=== PATIENT | male | born 1950 | race Caucasian/White ===

== ENCOUNTER → 2021-04-05 10:40 | Outpatient (CLI) | payer MEDICARE, OTHER, SELFPAY ==
--- NOTE | 2021-04-05 10:42 | DI.RAD.S_ITS ---
PROCEDURE: XR HIP W PEL IF DONE RT 2V INDICATIONS: RIGHT HIP PAIN TECHNIQUE: AP pelvis and lateral view of the right hip acquired. COMPARISON: None. FINDINGS: Bones: Patient is status post bilateral hip arthroplasty, with hardware components in expected positions. The hip joint appears congruent. The visualized bony structures appear intact. Soft tissues: Overlying postoperative changes are noted. No suspicious soft tissue densities. IMPRESSION: Expected alignment and appearance of bilateral hip arthroplasties. Dictated by: Regulo GARRETT Interpreted: Jamaal Puentes MD on 04/05/2021 at 12:08 Transcribed by: RAFFY on 04/05/2021 at 12:09 Approved by: Jamaal Peuntes M.D. on 04/05/2021 at 15:38
== END ==
PROVIDERS: PCP Family Medicine; Referring Provider Family Medicine; Visit Provider Family Medicine
DX: M25.551 Pain in right hip (principal); G89.29 Other chronic pain; Z96.643 Presence of artificial hip joint, bilateral
CPT/HCPCS: 73502

== ENCOUNTER → 2021-10-26 10:41 | Outpatient (CLI) | payer MEDICARE, OTHER, SELFPAY ==
[2021-10-26 12:44] LABS: Prostate Specific Antigen 2.87 ng/mL (0.10-4.00)
== END ==
PROVIDERS: PCP Family Medicine; Referring Provider Urology; Visit Provider Urology
DX: R39.9 Unspecified symptoms and signs involving the genitourinary system (principal); Z80.42 Family history of malignant neoplasm of prostate; Z12.5 Encounter for screening for malignant neoplasm of prostate
CPT/HCPCS: 36415; 84153; G0103

== ENCOUNTER → 2021-11-25 09:29 | Outpatient (CLI) | payer MEDICARE, OTHER, SELFPAY ==
[2021-11-25 11:12] LABS: Add Manual Diff / Slide Review NO; Basophils Absolute Auto 100 /uL (0-100); Basophils Percent Auto 1.2 % (0-2); Eosinophils Absolute Auto 400 /uL (0-450); Eosinophils Percent Auto 7.6 % (2-4); Hematocrit 41.7 % (41-53); Lymphocytes Absolute Auto 2000 /uL (1100-4500); Lymphocytes Percent Auto 34.9 % (25-40); Mean Corpuscular HGB Conc 33.6 % (30-36); Mean Corpuscular Hemoglobin 29.3 PG (26-34); Mean Corpuscular Volume 87.3 fL (80-100); Monocytes Absolute Auto 500 /uL (0-900); Monocytes Percent Auto 8.5 % (3-14); Neutrophils Absolute Auto 2800 /uL (1500-7000); Neutrophils Percent Auto 47.8 % (50-75); Platelet Count 186 X10^3/uL (150-400); Red Blood Cell Count 4.78 X10^6/uL (4.5-5.9); Red Cell Distribution Width 13.6 % (11.6-14.8); White Blood Cell Count 5.9 X10^3/uL (4.5-11.0)
[2021-11-25 11:36] LABS: Alanine Aminotransferase 23 IU/L (<50); Albumin Globulin Ratio 1.6 (1.0-2.8); Alkaline Phosphatase 52 U/L (38-126); Aspartate Aminotransferase 26 IU/L (17-59); BUN Creatinine Ratio 20.2 (6-22); Bilirubin Total 0.8 mg/dL (0.2-1.3); Blood Urea Nitrogen 21 mg/dL (9-20); Calcium 9.2 mg/dL (8.4-10.2); Carbon Dioxide 29 mmol/L (22-32); Chloride 106 mmol/L (98-107); Cholesterol 226 mg/dL (140-199); Estimated Glomerular Filt Rate > 60.0 mL/min (>60); Globulin 2.5 g/dL (1.7-4.1); Glucose 88 mg/dL (80-110); HDL Cholesterol 71 mg/dL (40-60); HEMOLYSIS < 15 (0-50); LDL Cholesterol Calculated 141 mg/dL (<100); Potassium 4.6 mmol/L (3.4-5.1); Sodium 138 mmol/L (137-145); Total Protein 6.5 g/dL (6.3-8.2); Triglycerides 72 mg/dL (35-150)
[2021-11-25 11:56] LABS: Free T3, Triiodothyronine Free 3.04 pg/mL (2.77-5.27); Free T4, Direct Thyroxine 1.08 ng/dL (0.78-2.19)
[2021-11-25 12:10] LABS: Thyroid Stimulating Hormone 1.69 uIU/mL (0.47-4.68)
== END ==
PROVIDERS: PCP Family Medicine; Referring Provider Family Medicine; Visit Provider Family Medicine
DX: E03.9 Hypothyroidism, unspecified (principal)
CPT/HCPCS: 36415; 80053; 80061; 84439; 84443; 84481; 85025

== ENCOUNTER → 2022-05-12 13:02 | Outpatient (CLI) | payer MEDICARE, OTHER, SELFPAY ==
--- NOTE | 2022-05-12 13:06 | DI.ECHO.S_ITS ---
[facility] +---------+ : : [address] : : : : [id number] : : : : Phone: [phone]---------+ Echocardiogram Report + + :Name: ERICH SAVAGE Study Date: 05/12/2022 Height: 72 in : :[facility] ReadingLocation: Weight: 205 lb : : Gender: Male BSA: 2.2 m2 : :: 1950 Age: 71 yrs BP: 144/85 mmHg: :Reason For Study: RBBB : :Ordering Physician: JESE, : :MIGUEL Performed By: Jadon Moreira : :Referring: MIGUEL SWEENEY : + + Interpretation Summary 1) Normal left ventricular thickness, size, and systolic function (EF 55-60%). 2) Normal right ventricular size and function. 3) No significant valvular abnormalities. 4) No prior Echo available for comparison. Procedure: A two-dimensional transthoracic echocardiogram with color flow and Doppler was performed. The study quality was technically adequate. There is no prior echocardiogram noted for this patient. Left Ventricle: The left ventricle is normal in size and wall thickness. Left ventricular systolic function is normal. The ejection fraction is estimated to be 55-60%. There are no obvious focal wall motion abnormalities noted but poor endocardial definition reduces the sensitivity for the detection of such. Diastolic parameters suggest a relaxation abnormality of the left ventricle, consistent with probable normal filling pressures. Right Ventricle: The right ventricle is normal in size and function. Atria: Both atria are normal in size. The interatrial septum grossly appears intact with no obvious evidence for an atrial septal defect. Mitral Valve: The mitral valve is normal in structure and function. There is no mitral regurgitation noted. Aortic Valve: The aortic valve is normal in structure and function. There is no aortic valve stenosis. No aortic regurgitation is present. Tricuspid Valve: The tricuspid valve is normal in structure and function. There is trace tricuspid regurgitation. Pulmonary artery pressures cannot be estimated because of the lack of a measurable TR jet velocity. Pulmonic Valve: The pulmonic valve is not well seen, but is grossly normal. There is no pulmonic valvular regurgitation. Great Vessels: The aortic root is normal size. The ascending aorta could not be visualized. The IVC is of normal diameter and collapses greater than 50% with a sniff. This suggests a low right atrial pressure of 3 mm Hg. Pericardium/ Pleura There is no pericardial effusion. There is no pleural effusion. MMode/2D Measurements & Calculations LVIDd: 5.4 cm LVOT diam: 2.4 cm LVIDs: 3.6 cm Ao root diam: 3.2 cm FS: 33.3 % IVSd: 1.0 cm LVPWd: 1.0 cm LV daley. diameter/BSA (cm/m^2): 2.5 LV sys. diameter/BSA (cm/m^2): 1.7 LA dimension: 3.5 cm RA long axis: 5.1 cm LA A2 area: 18.8 cm2 LA A4 area: 23.0 cm2 LA length (vol): 5.1 cm LA vol: 71.8 ml LA vol index: 33.4 ml/m2 TAPSE_phl: 2.3 cm Doppler Measurements & Calculations Ao V2 max: 94.7 cm/sec LVOT Max Douglas: 92.7 cm/sec Ao V2 mean: 68.3 cm/sec LV V1 max P.4 mmHg Ao max P.0 mmHg LV V1 VTI: 23.0 cm Ao mean P.0 mmHg CHRISTIANO(I,D): 5.1 cm2 Ao V2 VTI: 20.5 cm CHRISTIANO(V,D): 4.4 cm2 sev ratio: 1.1 CHRISTIANO indexed to BSA (cm^2/m^2): 2.4 MV E max douglas: 63.8 cm/sec SV(LVOT): 104.0 ml MV A max douglas: 45.8 cm/sec MV E/A: 1.4 Med Peak E' Douglas: 6.3 cm/sec E/E' med: 10.1 Lat Peak E' Douglas: 9.1 cm/sec E/E' lat: 7.0 E/e' average: 8.6 MV dec time: 0.29 sec AV VR_phl: 0.98 MV P1/2t-pr_phl: 86.0 msec CHRISTIANO(VTI)/BSA_phl: 2.4 Reading Physician:04:47 PM
[2022-05-12 14:55] LABS: COVID19 -Nasal RAPID Negative (Negative)
--- NOTE | 2022-05-12 19:11 | DI.NM.S_ITS ---
DATE OF SERVICE: PROCEDURE: Exercise stress test. INDICATION: Chest pain, shortness of breath, right bundle-branch block. FINDINGS: Patient underwent exercise stress test under the supervision of an attending staff. The patient walked on Felix protocol for 9 minutes and 1 second. Achieved 10.1 METs of workload and SABAS -36 percent. Baseline rhythm was sinus with underlying right bundle-branch block and had some less than 2- second pauses and at one time appeared to be one junctional escape. During exercise, the patient achieved maximum heart rate of 148, which was 101 percent of target heart rate. No significant pauses or heart block or arrhythmias seen during exercise. Resting blood pressure 138/88. Peak blood pressure 200/100 mmHg. Achieved 10.1 METs of workload. SABAS -36 percent. No chest pain. Had fatigue and hip discomfort. CONCLUSION: Exercise stress test is negative for inducible ischemia. Excellent exercise tolerance. Functional aerobic impairment -36 percent. Hypertensive blood pressure response with peak blood pressure 200/100 mmHg. Baseline rhythm is sinus with right bundle branch block and had some less than 2-second pauses and one time likely one junctional escape rhythm. However, during exercise, no significant atrioventricular block or pauses seen. Correlate clinically and consider further workup to rule out underlying sick sinus syndrome. Joshua Greco - BRCYE/britney/SUYAPA doc#: [id number]/job#: [id number] dd: 05/12/2022 17:49:00 dt: 05/12/2022 18:36:00 DICTATING /COPIES TO: Joel Magaña MD COPIES MNE: SALUD;
== END ==
PROVIDERS: PCP Family Medicine; Referring Provider Internal Medicine Cardiovascular Disease; Visit Provider Internal Medicine Cardiovascular Disease
DX: R07.9 Chest pain, unspecified (principal); I45.10 Unspecified right bundle-branch block; I10 Essential (primary) hypertension
CPT/HCPCS: 87635; 93017; 93306

== ENCOUNTER → 2022-06-06 08:36 | Outpatient (CLI) | payer MEDICARE, OTHER, SELFPAY ==
[2022-06-06 10:27] LABS: Cholesterol 137 mg/dL (140-199); HDL Cholesterol 63 mg/dL (40-60); LDL Cholesterol Calculated 59 mg/dL (<100); Triglycerides 76 mg/dL (35-150)
== END ==
PROVIDERS: PCP Family Medicine; Referring Provider Internal Medicine Cardiovascular Disease; Visit Provider Internal Medicine Cardiovascular Disease
DX: E78.5 Hyperlipidemia, unspecified (principal)
CPT/HCPCS: 36415; 80061

== ENCOUNTER → 2022-10-16 16:50 | Outpatient (CLI) | payer MEDICARE, SELFPAY ==
--- NOTE | 2022-10-16 18:17 | DI.RAD.S_ITS ---
PROCEDURE: XR HIP W PEL IF DONE RT 2V INDICATIONS: Right hip pain TECHNIQUE: AP pelvis with lateral view(s) of the right hip(s). COMPARISON: [facility], , XR HIP W PEL IF DONE RT 2V, 04/05/2021, 10:50. FINDINGS: Bones: No fractures or dislocations. Pelvic ring appears intact. No suspicious bony lesions. Bilateral hip arthroplasty hardware can be seen, without findings of failure or loosening. Along the right lateral acetabulum, there is a remote fracture fragment seen, which is stable compared to 2020. Age-appropriate lower lumbar spine degenerative changes are noted. Soft tissues: The visualized bowel gas pattern is normal. No suspicious soft tissue calcifications. IMPRESSION: No acute plain film abnormality is seen. No acute fractures or dislocations are seen. Unremarkable bilateral hip arthroplasty hardware. Dictated by: Radu Beltrán M.D. on 10/16/2022 at 18:26 Approved by: Radu Beltrán M.D. on 10/16/2022 at 18:27
== END ==
PROVIDERS: PCP Family Medicine; Referring Provider Physician Assistant; Visit Provider Physician Assistant
DX: M25.551 Pain in right hip (principal); Z96.643 Presence of artificial hip joint, bilateral
CPT/HCPCS: 73502

== ENCOUNTER → 2022-10-25 09:58 | Outpatient (CLI) | payer MEDICARE, SELFPAY ==
[2022-10-26 08:36] LABS: PSA Free % 29.1 % (.); PSA, Total 3.4 ng/mL (0.0-4.0)
== END ==
PROVIDERS: Family Provider Family Medicine; PCP Family Medicine; Referring Provider Urology; Visit Provider Urology
DX: N40.1 Benign prostatic hyperplasia with lower urinary tract symptoms (principal); R39.12 Poor urinary stream; K64.9 Unspecified hemorrhoids; Z86.010 Personal history of colon polyps
CPT/HCPCS: 36415; 84153; 84154; 99203

== ENCOUNTER 2022-11-02 06:52 | Day surgery (SDC) | payer MEDICARE, SELFPAY ==
[2022-11-02 07:15] VITALS: BP 158/87; PULSE 73; RESP 20; TEMP 36.2; O2SAT 98; BMI 28.5
[2022-11-02] MEDS: LACTATED RINGERS 1,000 ML 42 ML IV (07:19)
--- NOTE | 2022-11-02 07:44 | PM.PREOP ---
Pre-operative Note COVID-19 COVID-19 status: Not tested Interval Note History & Physical reviewed/Exam performed by Physician: Yes Changes to H&P: Yes H&P completed within 30 days and has changed as indicated here:: Joshua is here for his colonoscopy. We discussed rubber-band ligation of his hemorrhoids and he would like to proceed ASA Class (for procedural sedation): II
--- NOTE | 2022-11-02 08:12 | PM.OP.COLON ---
Operative Date/Time/Diagnoses Date of procedure: 11/02/22 Time of procedure: 08:12 Pre-op diagnosis: Colon cancer screening Post-op diagnosis: same Procedure & Clinicians Study performed: Colonoscopy Same procedure as scheduled: Yes Surgeon: Td Bergman Procedure Notes Procedure in detail: Surgeon: Td Bergman MD Anesthesia: Dianne Grady BARREL LINE OPERATOR Procedure: The patient was brought to the endoscopy suite, placed in left lateral decubitus position. The patient was connected to monitoring devices. A time-out was performed. Sedation was administered. Once the patient was adequately sedated, a digital rectal exam was performed and was normal. The scope was then inserted and advanced to the cecum where the appendiceal orifice was identified and photographed. The scope was then slowly withdrawn over greater than 6 minutes. Prep was not adequate to completely screen the colon. The mucosa was thoroughly inspected where possible. No polyps were seen however visualization was limited by the prep. There was extensive pandiverticulosis. The scope was retroflexed in the rectum. There were some scar tissue in the distal rectum. Were some internal hemorrhoids. The scope was straightened and removed. The patient was awakened and brought to recovery. Scope withdrawal time: 10 minute Sedation time: 20 minutes EBL: 0 Findings: Suboptimal prep, pandiverticulosis, internal hemorrhoids and scar tissue the distal rectum consistent with a history of a fistula Post-procedure Recommendations: Colonoscopy in 1 year Disposition: PACU
[2022-11-02 08:13] VITALS: BP 112/64; PULSE 61; RESP 14; TEMP 36.3; O2SAT 95
[2022-11-02 08:18] VITALS: BP 109/62; PULSE 61; RESP 12; O2SAT 95
[2022-11-02 08:25] VITALS: BP 116/70; PULSE 56; RESP 15; O2SAT 96
[2022-11-02 08:30] VITALS: BP 123/78; PULSE 61; RESP 17; O2SAT 97
[2022-11-02 08:33] VITALS: BP 136/84; PULSE 65; RESP 17; TEMP 36; O2SAT 97
== END 2022-11-02 08:44 | disposition home or self-care (01) ==
PROVIDERS: Family Provider Family Medicine; PCP Family Medicine; Referring Provider Surgery; Visit Provider Surgery
PROC: 0DJD8ZZ Inspection of Lower Intestinal Tract, Via Natural or Artificial Opening Endoscopic (ICD-10-PCS; CPT 45378; principal; 2022-11-02 07:45)
DX: Z12.11 Encounter for screening for malignant neoplasm of colon (principal); K57.30 Diverticulosis of large intestine without perforation or abscess without bleeding; K64.8 Other hemorrhoids
CPT/HCPCS: G0121; J2704

== ENCOUNTER 2023-01-24 15:00 | Outpatient (RCR) | payer MEDICARE, SELFPAY ==
--- NOTE | 2022-11-27 16:40 | PT.OIE ---
Current Diagnoses Pain in right hip (11/27/22) Difficulty in walking, not elsewhere classified (11/27/22) Weakness (11/27/22) Past Medical History (Last Reviewed 10/25/22 @ 09:05 by Radha Macias RN) Actinic keratoses Atypical nevi BPH (benign prostatic hyperplasia) Chronic 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 Depression Erectile dysfunction Family history of prostate cancer Hx of colonic polyp Hypothyroidism (acquired) Lower urinary tract symptoms Past Surgical History (Last Reviewed 10/25/22 @ 09:05 by Radha Macias RN) H/O bilateral hip replacements H/O vasectomy Visit Care Team Role Provider Type Junior Roger DO Attending Provider Physician Family Provider Primary Care Provider Referring Provider Specialty: Family Practice Address: [address] [place] [address], [facility] Email: Physical Therapy Initial Evaluation PT-OP-A Visit Information Start: 11/26/22 08:27 Freq: Status: Active Protocol: Document 11/27/22 08:18 SAK (Rec: 11/27/22 09:07 SAK [id number]) Out-Patient Physical Therapy Visit Information Visit Information Visit Type Initial Evaluation Visit Start Time 08:20 Visit Stop Time 09:00 Total Visit Minutes 50 Visit Number 1 Evaluation Information Evaluation Date 11/27/22 PT-OP-B Current Condition Start: 11/26/22 08:27 Freq: Status: Active Protocol: Document 11/27/22 08:18 SAK (Rec: 11/27/22 09:07 SAK [id number]) Current Condition History of Current Condition Onset Date 1 month Current Complaints right hip pain History of Current Condition History antonio JOY. No issues with left. Right hip aching with driving in the past but always went away. Now really flared up and won't go away. Initially could get relief standing up, now no relief, can't sleep in bed due to right hip and calf pain. Now has developed LE edema due to sleeping in recliner left greater than right. Normal sleep position is laying on right side or left side. LOts of Ibuprofen, Acetaminophen. Right big toe N/T but mostly ache not tingle. Crossing right LE over left in sitting at times gives a little relief . Historically walked 4-6 miles per day, currently unable to walk. [address] up to [facility], lots of sitting with travel, states he stretched wrong foot up on bench had sharp pain and worsened pain. Nights are the worst, poor sleep Prior Treatments and Tests x-rays negative. 1 chiropractic appointment, not helpful. Lots of time on ice and heat Treatment Goals Patient/Caregiver Goals eliminate pain, resume prior level of function Prior Functional Status Baseline Function- ADL's Independent Baseline Function- Mobility Independent Baseline Function- Gait no difficulty Baseline Function- Work/School retired Baseline Function- Recreation/Hobbies no difficulty Current Functional Impairments (Reported) Functional Limitations- ADL's paionful Functional Limitations- Mobility/Gait painful and limited Functional Limitations- Work/School retired Functional Limitations- Recreation/ unable Hobbies PT-OP-C Subjective Start: 11/26/22 08:27 Freq: Status: Active Protocol: Document 11/27/22 08:18 SAK (Rec: 11/28/22 16:39 [facility] [id number]) OP-PT Pain Assessment Location right buttock Intensity 8 Scale Used Numeric (0 - 10) Description Aching,Pressure,Spasm,Tender, Tightness Frequency Frequent PT-OP-F Manual Assessment Start: 11/26/22 08:27 Freq: Status: Active Protocol: Document 11/27/22 08:18 SAK (Rec: 11/28/22 16:39 [facility] [id number]) Manual Assessments Soft Tissue Assessment Soft Tissue Mobility Assessment TTP right piriformis, glut med , IT band PT-OP-G Mobility & Gait Start: 11/26/22 08:27 Freq: Status: Active Protocol: Document 11/27/22 08:18 SAK (Rec: 11/28/22 16:39 [facility] [id number]) OP Gait Assessment Gait Gait Assistance Required: Independent Assistive Devices Assistive Device None Gait Deviations General Gait Pattern Antalgic Factors Limiting Gait Function Factors Limiting Gait Function Pain PT-OP-H Neuro Start: 11/26/22 08:27 Freq: Status: Active Protocol: Document 11/27/22 08:18 SAK (Rec: 11/28/22 16:39 [facility] [id number]) Sensation Evaluation Gross Sensation Gross Sensation WNL PT-OP-J Posture/Palpation/Skin Start: 11/26/22 08:27 Freq: Status: Active Protocol: Document 11/27/22 08:18 SAK (Rec: 11/28/22 16:39 [facility] [id number]) Posture Evaluation Position Standing Head/C-Spine Posture Forward Head T-Spine Posture Increased Kyphosis L-Spine Posture Decreased Lordosis Shoulder Posture (L) Rounded,(R) Rounded Scapula Posture (L) Protracted,(R) Protracted Pelvis Posture Posterior Tilted Weight Distribution Weight Shifted Posterior Hip Posture (R) Externally Rotated Palpation Assessment Location glut med Palpation Location R Palpation Findings Soft Tissue Tightness, Tenderness IT band Palpation Location R Palpation Findings Soft Tissue Tightness, Tenderness piriformis Palpation Location R Palpation Findings Soft Tissue Tightness, Tenderness PT-OP-K Range of Motion Start: 11/26/22 08:27 Freq: Status: Active Protocol: Document 11/27/22 08:18 [facility] (Rec: 11/28/22 16:39 [facility] [id number]) Lumbar Spine Range of Motion Lumbar Spine Active Flexion 30 Extension 10 Rotation Left 45 Rotation Right 45 Lateral Flexion Left 35 Lateral Flexion Right 30 ROM Limitations Soft Tissue Tightness,Pain Hip Goniometric Range of Motion Hip Right Flexion w/Knee Flexed 90 Straight Leg Raise 35 Extension 0 Abduction 35 Internal Rotation 10 External Rotation 40 Left Flexion w/Knee Flexed 90 Straight Leg Raise 40 Extension 0 Abduction 25 Internal Rotation 10 External Rotation 30 PT-OP-L Special Tests Start: 11/26/22 08:27 Freq: Status: Active Protocol: Document 11/27/22 08:18 [facility] (Rec: 11/28/22 16:39 [facility] [id number]) Special Tests Lumbar Spine Special Tests Vertical Spine Loading Test Results negative Slump Test Results negative PT-OP-M Strength Start: 11/26/22 08:27 Freq: Status: Active Protocol: Document 11/27/22 08:18 [facility] (Rec: 11/28/22 16:39 [facility] [id number]) Hip Strength Hip Manual Muscle Testing Right Flexion (L2) 4 Good Extension (S1) 3+ Fair+ Abduction 4- Good- External Rotation 3+ Fair+ Internal Rotation 4- Good- Left Flexion (L2) 4 Good Extension (S1) 4- Good- Abduction 4- Good- External Rotation 4- Good- Internal Rotation 4 Good Knee Strength Knee Manual Muscle Testing antonio Flexion (S2) 5 Normal Extension (L3) 5 Normal Ankle/Foot Strength Ankle and Foot Manual Muscle Testing antonio Dorsiflexion (L4) 5 Normal Plantarflexion (S1) 5 Normal PT-OP-Q Treatments Start: 11/26/22 08:27 Freq: Status: Active Protocol: Document 11/27/22 08:18 SAK (Rec: 11/28/22 16:39 [facility] [id number]) Self-Care/Home Management Treatment Education Patient Education Body Mechanics,Home Exercise Program,Pain Management, Posture PT-OP-R Modalities Start: 11/26/22 08:27 Freq: Status: Active Protocol: Document 11/27/22 08:18 SAK (Rec: 11/28/22 16:39 [facility] [id number]) Hot Pack/Cold Pack Treatment Cold Pack Location right buttock, l/s Patient Position Hooklying Treatment Duration (minutes) 10 PT-OP-T Assessment and Plan Start: 11/26/22 08:27 Freq: Status: Active Protocol: Document 11/27/22 08:18 [facility] (Rec: 11/27/22 09:07 [facility] [id number]) Physical Therapy Assessment Rehab Potential Rehabilitation Potential Good Evaluation Complexity Number of Personal Factors/Comorbidities 1-2 Number of Body Systems Impaired 3 Clinical Presentation at Evaluation Evolving Impairments Impairments Activity Tolerance,Gait,Pain, Soft Tissue Mobility,Strength Goals Three Impairment sleep limited by pain Nursing Home Goal (LTG) Patient able to resume normal sleep pattern without being woken due to pain LTG Duration 01/27/23 Two Impairment weakness and decreased flexibility hips antonio right greater than left Short Term Goal (STG) patient to be instructed in HEP to address impairments STG Duration 12/29/22 Nursing Home Goal (LTG) Patient to be independent and compliant with HEP and demonstrate ROM WNL and strength 5/5 antonio hips LTG Duration 01/28/23 One Impairment pain right buttock and lateral calf Impairment 5-8/10 on pain scale Short Term Goal (STG) decrease pain to no greater than 5/10 STG Duration 12/28/22 Nursing Home Goal (LTG) decrease pain to no greater than 2/10 to allow patient to resume all prior activities LTG Duration 01/27/23 Assessment Summary Assessment Patient presents to PT with function limiting right buttock with radicular symptoms lateral and anterior right ruiz. Impairments revealed excess ER right LE in standing, limited forward flexion with c/o inc pain. Tender to palpation R gluteal tuberosity , lateral anterior ruiz. Weakness right ER. Weak and painful hip abd. Tightness antonio HS left greater than right. Negative SLR and vertical compression test. Feel patient would benefit from PT to decrease his pain, improve his flexibility and strength, and help him resume prior level of functional activity tolerance, and return to sleep without pain. POC was discussed and patient was in agreement. Physical Therapy Plan Frequency and Duration Frequency of Treatment 2x/Week Duration of treatment (weeks) 8 Plan of Care Start Date 11/27/22 Plan of Care End Date 01/26/23 Next Visit Focus/Plan Next Note Type Treatment Note Next Visit Plan REview HEP and use if ice today, trial manual traction, instruct in self-massage gluteal region.
--- NOTE | 2022-11-27 16:40 | PT.OPPOC ---
Physical, Occupational & Speech Therapy At [facility] Current Diagnoses Pain in right hip (11/27/22) Difficulty in walking, not elsewhere classified (11/27/22) Weakness (11/27/22) Visit Care Team Role Provider Type Junior Roger DO Attending Provider Physician Family Provider Primary Care Provider Referring Provider Specialty: [facility] Practice Address: [address] [place] [address], [facility] Email: Plan Of Care PT-OP-T Assessment and Plan Start: 11/26/22 08:27 Freq: Status: Active Protocol: Document 11/27/22 08:18 [facility] (Rec: 11/27/22 09:07 SAK [id number]) Physical Therapy Assessment Rehab Potential Rehabilitation Potential Good Evaluation Complexity Number of Personal Factors/Comorbidities 1-2 Number of Body Systems Impaired 3 Clinical Presentation at Evaluation Evolving Impairments Impairments Activity Tolerance,Gait,Pain, Soft Tissue Mobility,Strength Goals Three Impairment sleep limited by pain Half-Way Goal (LTG) Patient able to resume normal sleep pattern without being woken due to pain LTG Duration 01/27/23 Two Impairment weakness and decreased flexibility hips antonio right greater than left Short Term Goal (STG) patient to be instructed in HEP to address impairments STG Duration 12/29/22 Banquet Set Up Person Goal (LTG) Patient to be independent and compliant with HEP and demonstrate ROM WNL and strength 5/5 antonio hips LTG Duration 01/28/23 One Impairment pain right buttock and lateral calf Impairment 5-8/10 on pain scale Short Term Goal (STG) decrease pain to no greater than 5/10 STG Duration 12/28/22 Half-Way Goal (LTG) decrease pain to no greater than 2/10 to allow patient to resume all prior activities LTG Duration 01/27/23 Assessment Summary Assessment Patient presents to PT with function limiting right buttock with radicular symptoms lateral and anterior right ruiz. Impairments revealed excess ER right LE in standing, limited forward flexion with c/o inc pain. Tender to palpation R gluteal tuberosity , lateral anterior ruiz. Weakness right ER. Weak and painful hip abd. Tightness antonio HS left greater than right. Negative SLR and vertical compression test. Feel patient would benefit from PT to decrease his pain, improve his flexibility and strength, and help him resume prior level of functional activity tolerance, and return to sleep without pain. POC was discussed and patient was in agreement. Physical Therapy Plan Frequency and Duration Frequency of Treatment 2x/Week Duration of treatment (weeks) 8 Plan of Care Start Date 11/27/22 Plan of Care End Date 01/26/23 Next Visit Focus/Plan Next Note Type Treatment Note Next Visit Plan REview HEP and use if ice today, trial manual traction, instruct in self-massage gluteal region. Plan of Care Dates Plan of Care Start Date 11/27/22 Plan of Care End Date 01/26/23 Electronically Signed by: Velvet Silva, PT 11/28/22 1640 If you are in agreement with this Plan of Care, please return a signed and dated copy. I have reviewed this Plan of Care and certify that the skilled therapy services above are required to meet the patient?s needs. Physician Signature Date Printed Name and Credentials Clinical Instructor Signature Printed Name and Credentials
--- NOTE | 2022-11-29 12:22 | PT.OTN ---
Current Diagnoses Pain in right hip (11/29/22) Difficulty in walking, not elsewhere classified (11/29/22) Weakness (11/29/22) Physical Therapy Treatment Note PT-OP-A Visit Information Start: 11/26/22 08:27 Freq: Status: Active Protocol: Document 11/29/22 10:30 SAK (Rec: 11/29/22 11:21 [facility] [id number]) Out-Patient Physical Therapy Visit Information Visit Information Visit Type Treatment Note Visit Note Pt. reports saw chiropractor after PT appointment, very painful with direct massage, better today. Still sleeping in chair. Compliant to HEP. Visit Start Time 10:30 Visit Stop Time 11:20 Total Visit Minutes 50 Visit Number 2 Evaluation Information Evaluation Date 11/27/22 PT-OP-B Current Condition Start: 11/26/22 08:27 Freq: Status: Active Protocol: Document 11/29/22 10:30 SAK (Rec: 11/29/22 11:21 [facility] [id number]) Current Condition History of Current Condition Onset Date 1 month Current Complaints right hip pain History of Current Condition History antonio JOY. No issues with left. Right hip aching with driving in the past but always went away. Now really flared up and won't go away. Initially could get relief standing up, now no relief, can't sleep in bed due to right hip and calf pain. Now has developed LE edema due to sleeping in recliner left greater than right. Normal sleep position is laying on right side or left side. LOts of Ibuprofen, Acetaminophen. Right big toe N/T but mostly ache not tingle. Crossing right LE over left in sitting at times gives a little relief . Historically walked 4-6 miles per day, currently unable to walk. [address] up to [facility], lots of sitting with travel, states he stretched wrong foot up on bench had sharp pain and worsened pain. Nights are the worst, poor sleep Prior Treatments and Tests x-rays negative. 1 chiropractic appointment, not helpful. Lots of time on ice and heat Treatment Goals Patient/Caregiver Goals eliminate pain, resume prior level of function PT-OP-C Subjective Start: 11/26/22 08:27 Freq: Status: Active Protocol: Document 11/27/22 08:18 SAK (Rec: 11/28/22 16:39 [facility] [id number]) OP-PT Pain Assessment Location right buttock Intensity 8 Scale Used Numeric (0 - 10) Description Aching,Pressure,Spasm,Tender, Tightness Frequency Frequent PT-OP-F Manual Assessment Start: 11/26/22 08:27 Freq: Status: Active Protocol: Document 11/27/22 08:18 SAK (Rec: 11/28/22 16:39 [facility] [id number]) Manual Assessments Soft Tissue Assessment Soft Tissue Mobility Assessment TTP right piriformis, glut med , IT band PT-OP-G Mobility & Gait Start: 11/26/22 08:27 Freq: Status: Active Protocol: Document 11/27/22 08:18 SAK (Rec: 11/28/22 16:39 [facility] [id number]) OP Gait Assessment Gait Gait Assistance Required: Independent Assistive Devices Assistive Device None Gait Deviations General Gait Pattern Antalgic Factors Limiting Gait Function Factors Limiting Gait Function Pain PT-OP-H Neuro Start: 11/26/22 08:27 Freq: Status: Active Protocol: Document 11/27/22 08:18 SAK (Rec: 11/28/22 16:39 [facility] [id number]) Sensation Evaluation Gross Sensation Gross Sensation WNL PT-OP-J Posture/Palpation/Skin Start: 11/26/22 08:27 Freq: Status: Active Protocol: Document 11/27/22 08:18 SAK (Rec: 11/28/22 16:39 [facility] [id number]) Posture Evaluation Position Standing Head/C-Spine Posture Forward Head T-Spine Posture Increased Kyphosis L-Spine Posture Decreased Lordosis Shoulder Posture (L) Rounded,(R) Rounded Scapula Posture (L) Protracted,(R) Protracted Pelvis Posture Posterior Tilted Weight Distribution Weight Shifted Posterior Hip Posture (R) Externally Rotated Palpation Assessment Location glut med Palpation Location R Palpation Findings Soft Tissue Tightness, Tenderness IT band Palpation Location R Palpation Findings Soft Tissue Tightness, Tenderness piriformis Palpation Location R Palpation Findings Soft Tissue Tightness, Tenderness PT-OP-K Range of Motion Start: 11/26/22 08:27 Freq: Status: Active Protocol: Document 11/27/22 08:18 SAK (Rec: 11/28/22 16:39 [facility] [id number]) Lumbar Spine Range of Motion Lumbar Spine Active Flexion 30 Extension 10 Rotation Left 45 Rotation Right 45 Lateral Flexion Left 35 Lateral Flexion Right 30 ROM Limitations Soft Tissue Tightness,Pain Hip Goniometric Range of Motion Hip Right Flexion w/Knee Flexed 90 Straight Leg Raise 35 Extension 0 Abduction 35 Internal Rotation 10 External Rotation 40 Left Flexion w/Knee Flexed 90 Straight Leg Raise 40 Extension 0 Abduction 25 Internal Rotation 10 External Rotation 30 PT-OP-L Special Tests Start: 11/26/22 08:27 Freq: Status: Active Protocol: Document 11/27/22 08:18 SAK (Rec: 11/28/22 16:39 [facility] [id number]) Special Tests Lumbar Spine Special Tests Vertical Spine Loading Test Results negative Slump Test Results negative PT-OP-M Strength Start: 11/26/22 08:27 Freq: Status: Active Protocol: Document 11/27/22 08:18 [facility] (Rec: 11/28/22 16:39 [facility] [id number]) Hip Strength Hip Manual Muscle Testing Right Flexion (L2) 4 Good Extension (S1) 3+ Fair+ Abduction 4- Good- External Rotation 3+ Fair+ Internal Rotation 4- Good- Left Flexion (L2) 4 Good Extension (S1) 4- Good- Abduction 4- Good- External Rotation 4- Good- Internal Rotation 4 Good Knee Strength Knee Manual Muscle Testing antonio Flexion (S2) 5 Normal Extension (L3) 5 Normal Ankle/Foot Strength Ankle and Foot Manual Muscle Testing antonio Dorsiflexion (L4) 5 Normal Plantarflexion (S1) 5 Normal PT-OP-Q Treatments Start: 11/26/22 08:27 Freq: Status: Active Protocol: Document 11/29/22 10:30 SAK (Rec: 11/29/22 11:21 [facility] [id number]) Cardio Equipment Recumbent Stepper (Sci-Fit) Duration (Minutes) 5 Resistance 1 Seat Position 12 Gym Equipment Shuttle Recovery Unilateral Squats Resistance 50 Shuttle Recovery Platform Stable Reps/Time 10x2 Bilateral Squats Resistance 62 Shuttle Recovery Platform Stable Reps/Time 10x2 Therapeutic Exercises Supine Exercises sciatic n glide Reps/Minutes 10x figure 4 Supine Exercise Name partial Reps/Minutes 2x30 Comments manual HS stretch Reps/Minutes 2x30 Sitting Exercises sciatic n glide Reps/Minutes 10x Comments given HO for HEP Hs stretch Reps/Minutes 2x30 Standing Exercises HC stretch Standing Exercise Name tingling in right foot with trial stairs Reps/Minutes 2x30 Comments cues for upright posture resisted walk Standing Exercise Name side Resistance yellow Reps/Minutes 10ft x 2 ea direction Manual Therapy Treatment Soft Tissue Mobilization HS, ITB, lateral calf Mobilization Type Instrument Assisted,Myofascial Release Comments rolling pin Self-Care/Home Management Treatment Education Patient Education Body Mechanics,Home Exercise Program,Pain Management, Posture PT-OP-R Modalities Start: 11/26/22 08:27 Freq: Status: Active Protocol: Document 11/29/22 10:30 [facility] (Rec: 11/29/22 12:22 [facility] [id number]) Hot Pack/Cold Pack Treatment Cold Pack Location ischial tub right Patient Position Sitting Treatment Duration (minutes) 10 Patient Tolerance Good PT-OP-T Assessment and Plan Start: 11/26/22 08:27 Freq: Status: Active Protocol: Document 11/29/22 10:30 [facility] (Rec: 11/29/22 11:21 [facility] [id number]) Physical Therapy Assessment Goals Three Impairment sleep limited by pain Lot Porter Goal (LTG) Patient able to resume normal sleep pattern without being woken due to pain LTG Duration 01/27/23 Two Impairment weakness and decreased flexibility hips antonio right greater than left Short Term Goal (STG) patient to be instructed in HEP to address impairments STG Duration 12/29/22 Lot Porter Goal (LTG) Patient to be independent and compliant with HEP and demonstrate ROM WNL and strength 5/5 antonio hips LTG Duration 01/28/23 One Impairment pain right buttock and lateral calf Impairment 5-8/10 on pain scale Short Term Goal (STG) decrease pain to no greater than 5/10 STG Duration 12/28/22 Half-Way Goal (LTG) decrease pain to no greater than 2/10 to allow patient to resume all prior activities LTG Duration 01/27/23 Assessment Summary Assessment Patient demonstrated good understanding of ther ex, added sciatic n glide to HEP, self massage with rolling pin and tennis ball. Symptoms irritable. Ended with ice pack ischial tuberosity Physical Therapy Plan Frequency and Duration Frequency of Treatment 2x/Week Duration of treatment (weeks) 8 Plan of Care Start Date 11/27/22 Plan of Care End Date 01/26/23 Next Visit Focus/Plan Next Note Type Treatment Note Next Visit Plan Assess response to today's treatment. trial manual traction to clear l/s. Continue hip strengthening and flex, manual treatment PRN.
--- NOTE | 2022-12-06 09:07 | PT.OTN ---
Current Diagnoses Pain in right hip (12/06/22) Difficulty in walking, not elsewhere classified (12/06/22) Weakness (12/06/22) Physical Therapy Treatment Note PT-OP-A Visit Information Start: 11/26/22 08:27 Freq: Status: Active Protocol: Document 12/06/22 08:15 TH (Rec: 12/06/22 09:06 [id number]) Out-Patient Physical Therapy Visit Information Visit Information Visit Type Treatment Note Visit Start Time 08:20 Visit Stop Time 09:00 Total Visit Minutes 40 Visit Number 3 Number of INSURANCE LOSS ASSESSOR Visits 0 PT-OP-B Current Condition Start: 11/26/22 08:27 Freq: Status: Active Protocol: Document 11/29/22 10:30 SAK (Rec: 11/29/22 11:21 SAK [id number]) Current Condition History of Current Condition Onset Date 1 month Current Complaints right hip pain History of Current Condition History antonio JOY. No issues with left. Right hip aching with driving in the past but always went away. Now really flared up and won't go away. Initially could get relief standing up, now no relief, can't sleep in bed due to right hip and calf pain. Now has developed LE edema due to sleeping in recliner left greater than right. Normal sleep position is laying on right side or left side. LOts of Ibuprofen, Acetaminophen. Right big toe N/T but mostly ache not tingle. Crossing right LE over left in sitting at times gives a little relief . Historically walked 4-6 miles per day, currently unable to walk. [address] up to [facility], lots of sitting with travel, states he stretched wrong foot up on bench had sharp pain and worsened pain. Nights are the worst, poor sleep Prior Treatments and Tests x-rays negative. 1 chiropractic appointment, not helpful. Lots of time on ice and heat Treatment Goals Patient/Caregiver Goals eliminate pain, resume prior level of function PT-OP-C Subjective Start: 11/26/22 08:27 Freq: Status: Active Protocol: Document 12/06/22 08:15 TH (Rec: 12/06/22 09:06 TH [id number]) OP-PT Subjective Patient Comments Patient Comments Pt states that he has been doing HEP regularly and he has been feeling a little bit better. PT-OP-F Manual Assessment Start: 11/26/22 08:27 Freq: Status: Active Protocol: Document 11/27/22 08:18 SAK (Rec: 11/28/22 16:39 [facility] [id number]) Manual Assessments Soft Tissue Assessment Soft Tissue Mobility Assessment TTP right piriformis, glut med , IT band PT-OP-G Mobility & Gait Start: 11/26/22 08:27 Freq: Status: Active Protocol: Document 11/27/22 08:18 SAK (Rec: 11/28/22 16:39 [facility] [id number]) OP Gait Assessment Gait Gait Assistance Required: Independent Assistive Devices Assistive Device None Gait Deviations General Gait Pattern Antalgic Factors Limiting Gait Function Factors Limiting Gait Function Pain PT-OP-H Neuro Start: 11/26/22 08:27 Freq: Status: Active Protocol: Document 11/27/22 08:18 SAK (Rec: 11/28/22 16:39 [facility] [id number]) Sensation Evaluation Gross Sensation Gross Sensation WNL PT-OP-J Posture/Palpation/Skin Start: 11/26/22 08:27 Freq: Status: Active Protocol: Document 11/27/22 08:18 SAK (Rec: 11/28/22 16:39 [facility] [id number]) Posture Evaluation Position Standing Head/C-Spine Posture Forward Head T-Spine Posture Increased Kyphosis L-Spine Posture Decreased Lordosis Shoulder Posture (L) Rounded,(R) Rounded Scapula Posture (L) Protracted,(R) Protracted Pelvis Posture Posterior Tilted Weight Distribution Weight Shifted Posterior Hip Posture (R) Externally Rotated Palpation Assessment Location glut med Palpation Location R Palpation Findings Soft Tissue Tightness, Tenderness IT band Palpation Location R Palpation Findings Soft Tissue Tightness, Tenderness piriformis Palpation Location R Palpation Findings Soft Tissue Tightness, Tenderness PT-OP-K Range of Motion Start: 11/26/22 08:27 Freq: Status: Active Protocol: Document 11/27/22 08:18 SAK (Rec: 11/28/22 16:39 [facility] [id number]) Lumbar Spine Range of Motion Lumbar Spine Active Flexion 30 Extension 10 Rotation Left 45 Rotation Right 45 Lateral Flexion Left 35 Lateral Flexion Right 30 ROM Limitations Soft Tissue Tightness,Pain Hip Goniometric Range of Motion Hip Right Flexion w/Knee Flexed 90 Straight Leg Raise 35 Extension 0 Abduction 35 Internal Rotation 10 External Rotation 40 Left Flexion w/Knee Flexed 90 Straight Leg Raise 40 Extension 0 Abduction 25 Internal Rotation 10 External Rotation 30 PT-OP-L Special Tests Start: 11/26/22 08:27 Freq: Status: Active Protocol: Document 11/27/22 08:18 [facility] (Rec: 11/28/22 16:39 [facility] [id number]) Special Tests Lumbar Spine Special Tests Vertical Spine Loading Test Results negative Slump Test Results negative PT-OP-M Strength Start: 11/26/22 08:27 Freq: Status: Active Protocol: Document 11/27/22 08:18 [facility] (Rec: 11/28/22 16:39 [facility] [id number]) Hip Strength Hip Manual Muscle Testing Right Flexion (L2) 4 Good Extension (S1) 3+ Fair+ Abduction 4- Good- External Rotation 3+ Fair+ Internal Rotation 4- Good- Left Flexion (L2) 4 Good Extension (S1) 4- Good- Abduction 4- Good- External Rotation 4- Good- Internal Rotation 4 Good Knee Strength Knee Manual Muscle Testing antonio Flexion (S2) 5 Normal Extension (L3) 5 Normal Ankle/Foot Strength Ankle and Foot Manual Muscle Testing antonio Dorsiflexion (L4) 5 Normal Plantarflexion (S1) 5 Normal PT-OP-Q Treatments Start: 11/26/22 08:27 Freq: Status: Active Protocol: Document 12/06/22 08:15 TH (Rec: 12/06/22 09:06 TH [id number]) Therapeutic Exercises Other Exercises Wall glide on right Side right Comments 3x on right side only Manual Therapy Treatment Manual Techniques iliopsoas release Comments right Attempted however pt too painful with r le radicular symptoms in this position. PT-OP-R Modalities Start: 11/26/22 08:27 Freq: Status: Active Protocol: Document 12/06/22 08:15 TH (Rec: 12/06/22 09:06 TH [id number]) Spinal Traction Traction Treatment Lumbar Traction Treatment Comment Velez traction for lumbar spine PT-OP-T Assessment and Plan Start: 11/26/22 08:27 Freq: Status: Active Protocol: Document 12/06/22 08:15 TH (Rec: 12/06/22 09:06 TH [id number]) Physical Therapy Assessment Goals Three Impairment sleep limited by pain Machine Egg Washer Goal (LTG) Patient able to resume normal sleep pattern without being woken due to pain LTG Duration 01/27/23 Two Impairment weakness and decreased flexibility hips antonio right greater than left Short Term Goal (STG) patient to be instructed in HEP to address impairments STG Duration 12/29/22 Usp Goal (LTG) Patient to be independent and compliant with HEP and demonstrate ROM WNL and strength 5/5 antonio hips LTG Duration 01/28/23 One Impairment pain right buttock and lateral calf Impairment 5-8/10 on pain scale Short Term Goal (STG) decrease pain to no greater than 5/10 STG Duration 12/28/22 Usp Goal (LTG) decrease pain to no greater than 2/10 to allow patient to resume all prior activities LTG Duration 01/27/23 Assessment Summary Assessment Pt states he has felt a little difference since start of PT however symptoms are still intolerable at times. Will assess response to [id number] next visit. Physical Therapy Plan Frequency and Duration Frequency of Treatment 2x/Week Duration of treatment (weeks) 8 Plan of Care Start Date 11/27/22 Plan of Care End Date 01/26/23 Therapeutic Interventions Therapeutic Interventions Balance Training,Coordination Training,Gait Training,Home Exercise Program,Joint Mobilizations,Manual Therapy, Neuromuscular Re-education, Patient/Caregiver Education, Self-Care/Home Management, Sensory Integration,Soft Tissue Mobilization,Taping, Therapeutic Activities, Therapeutic Exercises Modalities Hot Packs,Traction- Mechanical ,Ultrasound Next Visit Focus/Plan Next Note Type Treatment Note Next Visit Plan Assess response to today's treatment. trial manual traction to clear l/s. Continue hip strengthening and flex, manual treatment PRN.
--- NOTE | 2022-12-08 08:53 | PT.OTN ---
Current Diagnoses Pain in right hip (12/08/22) Difficulty in walking, not elsewhere classified (12/08/22) Weakness (12/08/22) Physical Therapy Treatment Note PT-OP-A Visit Information Start: 11/26/22 08:27 Freq: Status: Active Protocol: Document 12/08/22 08:10 TH (Rec: 12/08/22 08:53 TH [id number]) Out-Patient Physical Therapy Visit Information Visit Information Visit Type Treatment Note Visit Start Time 08:15 Visit Stop Time 09:00 Total Visit Minutes 45 Visit Number 4 Number of POND SAWYER Visits 0 PT-OP-B Current Condition Start: 11/26/22 08:27 Freq: Status: Active Protocol: Document 11/29/22 10:30 SAK (Rec: 11/29/22 11:21 SAK [id number]) Current Condition History of Current Condition Onset Date 1 month Current Complaints right hip pain History of Current Condition History antonio JOY. No issues with left. Right hip aching with driving in the past but always went away. Now really flared up and won't go away. Initially could get relief standing up, now no relief, can't sleep in bed due to right hip and calf pain. Now has developed LE edema due to sleeping in recliner left greater than right. Normal sleep position is laying on right side or left side. LOts of Ibuprofen, Acetaminophen. Right big toe N/T but mostly ache not tingle. Crossing right LE over left in sitting at times gives a little relief . Historically walked 4-6 miles per day, currently unable to walk. [address] up to [facility], lots of sitting with travel, states he stretched wrong foot up on bench had sharp pain and worsened pain. Nights are the worst, poor sleep Prior Treatments and Tests x-rays negative. 1 chiropractic appointment, not helpful. Lots of time on ice and heat Treatment Goals Patient/Caregiver Goals eliminate pain, resume prior level of function PT-OP-C Subjective Start: 11/26/22 08:27 Freq: Status: Active Protocol: Document 12/08/22 08:10 TH (Rec: 12/08/22 08:53 TH [id number]) OP-PT Subjective Patient Comments Patient Comments Pt states it ia hard to give an objective answer to if he is feeling better. Though he has noticed the RLE pain has improved. Leading to better sleep. PT-OP-F Manual Assessment Start: 11/26/22 08:27 Freq: Status: Active Protocol: Document 11/27/22 08:18 SAK (Rec: 11/28/22 16:39 [facility] [id number]) Manual Assessments Soft Tissue Assessment Soft Tissue Mobility Assessment TTP right piriformis, glut med , IT band PT-OP-G Mobility & Gait Start: 11/26/22 08:27 Freq: Status: Active Protocol: Document 11/27/22 08:18 SAK (Rec: 11/28/22 16:39 [facility] [id number]) OP Gait Assessment Gait Gait Assistance Required: Independent Assistive Devices Assistive Device None Gait Deviations General Gait Pattern Antalgic Factors Limiting Gait Function Factors Limiting Gait Function Pain PT-OP-H Neuro Start: 11/26/22 08:27 Freq: Status: Active Protocol: Document 11/27/22 08:18 SAK (Rec: 11/28/22 16:39 [facility] [id number]) Sensation Evaluation Gross Sensation Gross Sensation WNL PT-OP-J Posture/Palpation/Skin Start: 11/26/22 08:27 Freq: Status: Active Protocol: Document 11/27/22 08:18 SAK (Rec: 11/28/22 16:39 [facility] [id number]) Posture Evaluation Position Standing Head/C-Spine Posture Forward Head T-Spine Posture Increased Kyphosis L-Spine Posture Decreased Lordosis Shoulder Posture (L) Rounded,(R) Rounded Scapula Posture (L) Protracted,(R) Protracted Pelvis Posture Posterior Tilted Weight Distribution Weight Shifted Posterior Hip Posture (R) Externally Rotated Palpation Assessment Location glut med Palpation Location R Palpation Findings Soft Tissue Tightness, Tenderness IT band Palpation Location R Palpation Findings Soft Tissue Tightness, Tenderness piriformis Palpation Location R Palpation Findings Soft Tissue Tightness, Tenderness PT-OP-K Range of Motion Start: 11/26/22 08:27 Freq: Status: Active Protocol: Document 11/27/22 08:18 SAK (Rec: 11/28/22 16:39 [facility] [id number]) Lumbar Spine Range of Motion Lumbar Spine Active Flexion 30 Extension 10 Rotation Left 45 Rotation Right 45 Lateral Flexion Left 35 Lateral Flexion Right 30 ROM Limitations Soft Tissue Tightness,Pain Hip Goniometric Range of Motion Hip Right Flexion w/Knee Flexed 90 Straight Leg Raise 35 Extension 0 Abduction 35 Internal Rotation 10 External Rotation 40 Left Flexion w/Knee Flexed 90 Straight Leg Raise 40 Extension 0 Abduction 25 Internal Rotation 10 External Rotation 30 PT-OP-L Special Tests Start: 11/26/22 08:27 Freq: Status: Active Protocol: Document 11/27/22 08:18 SAK (Rec: 11/28/22 16:39 [facility] [id number]) Special Tests Lumbar Spine Special Tests Vertical Spine Loading Test Results negative Slump Test Results negative PT-OP-M Strength Start: 11/26/22 08:27 Freq: Status: Active Protocol: Document 11/27/22 08:18 SAK (Rec: 11/28/22 16:39 [facility] [id number]) Hip Strength Hip Manual Muscle Testing Right Flexion (L2) 4 Good Extension (S1) 3+ Fair+ Abduction 4- Good- External Rotation 3+ Fair+ Internal Rotation 4- Good- Left Flexion (L2) 4 Good Extension (S1) 4- Good- Abduction 4- Good- External Rotation 4- Good- Internal Rotation 4 Good Knee Strength Knee Manual Muscle Testing antonio Flexion (S2) 5 Normal Extension (L3) 5 Normal Ankle/Foot Strength Ankle and Foot Manual Muscle Testing antonio Dorsiflexion (L4) 5 Normal Plantarflexion (S1) 5 Normal PT-OP-Q Treatments Start: 11/26/22 08:27 Freq: Status: Active Protocol: Document 12/08/22 08:10 TH (Rec: 12/08/22 08:53 TH [id number]) Therapeutic Exercises Other Exercises TA contraction Comments 1 x 10 hold 5 sec Manual Therapy Treatment Manual Techniques long axis traction LLE Comments L LE iliopsoas release Comments R LE PT-OP-R Modalities Start: 11/26/22 08:27 Freq: Status: Active Protocol: Document 12/08/22 08:10 TH (Rec: 12/08/22 08:53 TH [id number]) Spinal Traction Traction Treatment Lumbar traction Traction Treatment Comment Velez Lumbar traction PT-OP-T Assessment and Plan Start: 11/26/22 08:27 Freq: Status: Active Protocol: Document 12/08/22 08:10 TH (Rec: 12/08/22 08:53 TH [id number]) Physical Therapy Assessment Goals Three Impairment sleep limited by pain Electrical And Instrument Technician Goal (LTG) Patient able to resume normal sleep pattern without being woken due to pain LTG Duration 01/27/23 Two Impairment weakness and decreased flexibility hips antonio right greater than left Short Term Goal (STG) patient to be instructed in HEP to address impairments STG Duration 12/29/22 Electrical And Instrument Technician Goal (LTG) Patient to be independent and compliant with HEP and demonstrate ROM WNL and strength 5/5 antonio hips LTG Duration 01/28/23 One Impairment pain right buttock and lateral calf Impairment 5-8/10 on pain scale Short Term Goal (STG) decrease pain to no greater than 5/10 STG Duration 12/28/22 Longterm Goal (LTG) decrease pain to no greater than 2/10 to allow patient to resume all prior activities LTG Duration 01/27/23 Physical Therapy Plan Frequency and Duration Frequency of Treatment 2x/Week Duration of treatment (weeks) 8 Plan of Care Start Date 11/27/22 Plan of Care End Date 01/26/23 Therapeutic Interventions Therapeutic Interventions Balance Training,Coordination Training,Gait Training,Home Exercise Program,Joint Mobilizations,Manual Therapy, Neuromuscular Re-education, Patient/Caregiver Education, Self-Care/Home Management, Sensory Integration,Soft Tissue Mobilization,Taping, Therapeutic Activities, Therapeutic Exercises Modalities Hot Packs,Traction- Mechanical ,Ultrasound
--- NOTE | 2022-12-13 11:49 | PT.OTN ---
Current Diagnoses Pain in right hip (12/13/22) Difficulty in walking, not elsewhere classified (12/13/22) Weakness (12/13/22) Physical Therapy Treatment Note PT-OP-A Visit Information Start: 11/26/22 08:27 Freq: Status: Active Protocol: Document 12/13/22 11:41 TH (Rec: 12/13/22 11:49 TH [id number]) Out-Patient Physical Therapy Visit Information Visit Information Visit Type Treatment Note Visit Start Time 09:00 Visit Stop Time 09:40 Total Visit Minutes 40 Visit Number 5 Number of ELA TEACHER Visits 0 PT-OP-B Current Condition Start: 11/26/22 08:27 Freq: Status: Active Protocol: Document 11/29/22 10:30 SAK (Rec: 11/29/22 11:21 SAK [id number]) Current Condition History of Current Condition Onset Date 1 month Current Complaints right hip pain History of Current Condition History antonio JOY. No issues with left. Right hip aching with driving in the past but always went away. Now really flared up and won't go away. Initially could get relief standing up, now no relief, can't sleep in bed due to right hip and calf pain. Now has developed LE edema due to sleeping in recliner left greater than right. Normal sleep position is laying on right side or left side. LOts of Ibuprofen, Acetaminophen. Right big toe N/T but mostly ache not tingle. Crossing right LE over left in sitting at times gives a little relief . Historically walked 4-6 miles per day, currently unable to walk. [address] up to [facility], lots of sitting with travel, states he stretched wrong foot up on bench had sharp pain and worsened pain. Nights are the worst, poor sleep Prior Treatments and Tests x-rays negative. 1 chiropractic appointment, not helpful. Lots of time on ice and heat Treatment Goals Patient/Caregiver Goals eliminate pain, resume prior level of function PT-OP-C Subjective Start: 11/26/22 08:27 Freq: Status: Active Protocol: Document 12/13/22 11:41 TH (Rec: 12/13/22 11:49 TH [id number]) OP-PT Subjective Patient Comments Patient Comments Pt reports radicular pain is nearly resolved from foot to lower leg however he is still having right buttock pain especially with longer walks. He did state he has been sleeping better with fewer interruptions of pain. PT-OP-F Manual Assessment Start: 11/26/22 08:27 Freq: Status: Active Protocol: Document 11/27/22 08:18 SAK (Rec: 11/28/22 16:39 [facility] [id number]) Manual Assessments Soft Tissue Assessment Soft Tissue Mobility Assessment TTP right piriformis, glut med , IT band PT-OP-G Mobility & Gait Start: 11/26/22 08:27 Freq: Status: Active Protocol: Document 11/27/22 08:18 SAK (Rec: 11/28/22 16:39 [facility] [id number]) OP Gait Assessment Gait Gait Assistance Required: Independent Assistive Devices Assistive Device None Gait Deviations General Gait Pattern Antalgic Factors Limiting Gait Function Factors Limiting Gait Function Pain PT-OP-H Neuro Start: 11/26/22 08:27 Freq: Status: Active Protocol: Document 11/27/22 08:18 SAK (Rec: 11/28/22 16:39 [facility] [id number]) Sensation Evaluation Gross Sensation Gross Sensation WNL PT-OP-J Posture/Palpation/Skin Start: 11/26/22 08:27 Freq: Status: Active Protocol: Document 11/27/22 08:18 SAK (Rec: 11/28/22 16:39 [facility] [id number]) Posture Evaluation Position Standing Head/C-Spine Posture Forward Head T-Spine Posture Increased Kyphosis L-Spine Posture Decreased Lordosis Shoulder Posture (L) Rounded,(R) Rounded Scapula Posture (L) Protracted,(R) Protracted Pelvis Posture Posterior Tilted Weight Distribution Weight Shifted Posterior Hip Posture (R) Externally Rotated Palpation Assessment Location glut med Palpation Location R Palpation Findings Soft Tissue Tightness, Tenderness IT band Palpation Location R Palpation Findings Soft Tissue Tightness, Tenderness piriformis Palpation Location R Palpation Findings Soft Tissue Tightness, Tenderness PT-OP-K Range of Motion Start: 11/26/22 08:27 Freq: Status: Active Protocol: Document 11/27/22 08:18 SAK (Rec: 11/28/22 16:39 [facility] [id number]) Lumbar Spine Range of Motion Lumbar Spine Active Flexion 30 Extension 10 Rotation Left 45 Rotation Right 45 Lateral Flexion Left 35 Lateral Flexion Right 30 ROM Limitations Soft Tissue Tightness,Pain Hip Goniometric Range of Motion Hip Right Flexion w/Knee Flexed 90 Straight Leg Raise 35 Extension 0 Abduction 35 Internal Rotation 10 External Rotation 40 Left Flexion w/Knee Flexed 90 Straight Leg Raise 40 Extension 0 Abduction 25 Internal Rotation 10 External Rotation 30 PT-OP-L Special Tests Start: 11/26/22 08:27 Freq: Status: Active Protocol: Document 11/27/22 08:18 SAK (Rec: 11/28/22 16:39 SAK [id number]) Special Tests Lumbar Spine Special Tests Vertical Spine Loading Test Results negative Slump Test Results negative PT-OP-M Strength Start: 11/26/22 08:27 Freq: Status: Active Protocol: Document 11/27/22 08:18 SAK (Rec: 11/28/22 16:39 SAK [id number]) Hip Strength Hip Manual Muscle Testing Right Flexion (L2) 4 Good Extension (S1) 3+ Fair+ Abduction 4- Good- External Rotation 3+ Fair+ Internal Rotation 4- Good- Left Flexion (L2) 4 Good Extension (S1) 4- Good- Abduction 4- Good- External Rotation 4- Good- Internal Rotation 4 Good Knee Strength Knee Manual Muscle Testing antonio Flexion (S2) 5 Normal Extension (L3) 5 Normal Ankle/Foot Strength Ankle and Foot Manual Muscle Testing antonio Dorsiflexion (L4) 5 Normal Plantarflexion (S1) 5 Normal PT-OP-Q Treatments Start: 11/26/22 08:27 Freq: Status: Active Protocol: Document 12/13/22 11:41 TH (Rec: 12/13/22 11:49 TH [id number]) Therapeutic Activity Therapeutic Activity squat <>stand Comments squat to stand with TA activation PT-OP-R Modalities Start: 11/26/22 08:27 Freq: Status: Active Protocol: Document 12/13/22 11:41 TH (Rec: 12/13/22 11:49 TH [id number]) Spinal Traction Traction Treatment Lumbar traction Method Mechanical Traction Treatment Comment Velez Lumbar traction PT-OP-T Assessment and Plan Start: 11/26/22 08:27 Freq: Status: Active Protocol: Document 12/13/22 11:41 TH (Rec: 12/13/22 11:49 TH [id number]) Physical Therapy Assessment Goals Three Impairment sleep limited by pain Nursing Home Goal (LTG) Patient able to resume normal sleep pattern without being woken due to pain LTG Duration 01/27/23 Two Impairment weakness and decreased flexibility hips antonio right greater than left Short Term Goal (STG) patient to be instructed in HEP to address impairments STG Duration 12/29/22 Nursing Home Goal (LTG) Patient to be independent and compliant with HEP and demonstrate ROM WNL and strength 5/5 antonio hips LTG Duration 01/28/23 One Impairment pain right buttock and lateral calf Impairment 5-8/10 on pain scale Short Term Goal (STG) decrease pain to no greater than 5/10 STG Duration 12/28/22 Nursing Home Goal (LTG) decrease pain to no greater than 2/10 to allow patient to resume all prior activities LTG Duration 01/27/23 Physical Therapy Plan Frequency and Duration Frequency of Treatment 2x/Week Duration of treatment (weeks) 8 Plan of Care Start Date 11/27/22 Plan of Care End Date 01/26/23 Therapeutic Interventions Therapeutic Interventions Balance Training,Coordination Training,Gait Training,Home Exercise Program,Joint Mobilizations,Manual Therapy, Neuromuscular Re-education, Patient/Caregiver Education, Self-Care/Home Management, Sensory Integration,Soft Tissue Mobilization,Taping, Therapeutic Activities, Therapeutic Exercises Modalities Hot Packs,Traction- Mechanical ,Ultrasound Next Visit Focus/Plan Next Visit Plan Traction Core /hip strengthening ( isometric hip abd. / wall sits )
--- NOTE | 2022-12-20 16:50 | PT.OTN ---
Current Diagnoses Pain in right hip (12/20/22) Difficulty in walking, not elsewhere classified (12/20/22) Weakness (12/20/22) Physical Therapy Treatment Note PT-OP-A Visit Information Start: 11/26/22 08:27 Freq: Status: Active Protocol: Document 12/20/22 08:10 SAK (Rec: 12/20/22 09:52 [facility] [id number]) Out-Patient Physical Therapy Visit Information Visit Information Visit Type Treatment Note Visit Start Time 08:15 Visit Stop Time 08:55 Total Visit Minutes 40 Visit Number 6 PT-OP-B Current Condition Start: 11/26/22 08:27 Freq: Status: Active Protocol: Document 11/29/22 10:30 SAK (Rec: 11/29/22 11:21 SAK [id number]) Current Condition History of Current Condition Onset Date 1 month Current Complaints right hip pain History of Current Condition History antonio JOY. No issues with left. Right hip aching with driving in the past but always went away. Now really flared up and won't go away. Initially could get relief standing up, now no relief, can't sleep in bed due to right hip and calf pain. Now has developed LE edema due to sleeping in recliner left greater than right. Normal sleep position is laying on right side or left side. LOts of Ibuprofen, Acetaminophen. Right big toe N/T but mostly ache not tingle. Crossing right LE over left in sitting at times gives a little relief . Historically walked 4-6 miles per day, currently unable to walk. [address] up to [facility], lots of sitting with travel, states he stretched wrong foot up on bench had sharp pain and worsened pain. Nights are the worst, poor sleep Prior Treatments and Tests x-rays negative. 1 chiropractic appointment, not helpful. Lots of time on ice and heat Treatment Goals Patient/Caregiver Goals eliminate pain, resume prior level of function PT-OP-C Subjective Start: 11/26/22 08:27 Freq: Status: Active Protocol: Document 12/20/22 08:10 SAK (Rec: 12/20/22 09:52 [facility] [id number]) OP-PT Subjective Patient Comments Patient Comments Buttock pain most persistent. States at least 60% better. Worst thing is it doesn't take walking long before his pain increases. Hasn't volunteered at [employer] yet due to need to stand for 6-8 hrs each day . PT-OP-F Manual Assessment Start: 11/26/22 08:27 Freq: Status: Active Protocol: Document 11/27/22 08:18 SAK (Rec: 11/28/22 16:39 [facility] [id number]) Manual Assessments Soft Tissue Assessment Soft Tissue Mobility Assessment TTP right piriformis, glut med , IT band PT-OP-G Mobility & Gait Start: 11/26/22 08:27 Freq: Status: Active Protocol: Document 11/27/22 08:18 SAK (Rec: 11/28/22 16:39 [facility] [id number]) OP Gait Assessment Gait Gait Assistance Required: Independent Assistive Devices Assistive Device None Gait Deviations General Gait Pattern Antalgic Factors Limiting Gait Function Factors Limiting Gait Function Pain PT-OP-H Neuro Start: 11/26/22 08:27 Freq: Status: Active Protocol: Document 11/27/22 08:18 SAK (Rec: 11/28/22 16:39 [facility] [id number]) Sensation Evaluation Gross Sensation Gross Sensation WNL PT-OP-J Posture/Palpation/Skin Start: 11/26/22 08:27 Freq: Status: Active Protocol: Document 11/27/22 08:18 SAK (Rec: 11/28/22 16:39 [facility] [id number]) Posture Evaluation Position Standing Head/C-Spine Posture Forward Head T-Spine Posture Increased Kyphosis L-Spine Posture Decreased Lordosis Shoulder Posture (L) Rounded,(R) Rounded Scapula Posture (L) Protracted,(R) Protracted Pelvis Posture Posterior Tilted Weight Distribution Weight Shifted Posterior Hip Posture (R) Externally Rotated Palpation Assessment Location glut med Palpation Location R Palpation Findings Soft Tissue Tightness, Tenderness IT band Palpation Location R Palpation Findings Soft Tissue Tightness, Tenderness piriformis Palpation Location R Palpation Findings Soft Tissue Tightness, Tenderness PT-OP-K Range of Motion Start: 11/26/22 08:27 Freq: Status: Active Protocol: Document 11/27/22 08:18 SAK (Rec: 11/28/22 16:39 [facility] [id number]) Lumbar Spine Range of Motion Lumbar Spine Active Flexion 30 Extension 10 Rotation Left 45 Rotation Right 45 Lateral Flexion Left 35 Lateral Flexion Right 30 ROM Limitations Soft Tissue Tightness,Pain Hip Goniometric Range of Motion Hip Right Flexion w/Knee Flexed 90 Straight Leg Raise 35 Extension 0 Abduction 35 Internal Rotation 10 External Rotation 40 Left Flexion w/Knee Flexed 90 Straight Leg Raise 40 Extension 0 Abduction 25 Internal Rotation 10 External Rotation 30 PT-OP-L Special Tests Start: 11/26/22 08:27 Freq: Status: Active Protocol: Document 11/27/22 08:18 [facility] (Rec: 11/28/22 16:39 [facility] [id number]) Special Tests Lumbar Spine Special Tests Vertical Spine Loading Test Results negative Slump Test Results negative PT-OP-M Strength Start: 11/26/22 08:27 Freq: Status: Active Protocol: Document 11/27/22 08:18 [facility] (Rec: 11/28/22 16:39 [facility] [id number]) Hip Strength Hip Manual Muscle Testing Right Flexion (L2) 4 Good Extension (S1) 3+ Fair+ Abduction 4- Good- External Rotation 3+ Fair+ Internal Rotation 4- Good- Left Flexion (L2) 4 Good Extension (S1) 4- Good- Abduction 4- Good- External Rotation 4- Good- Internal Rotation 4 Good Knee Strength Knee Manual Muscle Testing antonio Flexion (S2) 5 Normal Extension (L3) 5 Normal Ankle/Foot Strength Ankle and Foot Manual Muscle Testing antonio Dorsiflexion (L4) 5 Normal Plantarflexion (S1) 5 Normal PT-OP-Q Treatments Start: 11/26/22 08:27 Freq: Status: Active Protocol: Document 12/20/22 08:10 [facility] (Rec: 12/20/22 09:52 [facility] [id number]) Cardio Equipment Treadmill Duration (Minutes) 5 Speed 2 Incline 0 Other PT videoed with pt phone from all sides for gait eval Therapeutic Exercises Sitting Exercises sciatic n glide Reps/Minutes 10x Comments given HO for HEP Hs stretch Reps/Minutes 2x30 Standing Exercises wall sits Reps/Minutes 10x5 Comments mirror for visual feedback wall posture Reps/Minutes 5 min resisted walk Standing Exercise Name monster walks fwd/bck/side Equipment Used yellow band Comments added to HEP Therapeutic Activity Therapeutic Activity squat <>stand Reps/Minutes 10x Comments squat to stand with TA activation mirror for visual feedback Gait Training Gait Activity video on treadmill Distance/Duration 5 min Treatment Focus evaluation of gait mechanics and possible contribution PT-OP-R Modalities Start: 11/26/22 08:27 Freq: Status: Active Protocol: Document 12/13/22 11:41 TH (Rec: 12/13/22 11:49 [id number]) Spinal Traction Traction Treatment Lumbar traction Method Mechanical Traction Treatment Comment Velez Lumbar traction PT-OP-T Assessment and Plan Start: 11/26/22 08:27 Freq: Status: Active Protocol: Document 12/20/22 08:10 [facility] (Rec: 12/20/22 09:52 [facility] [id number]) Physical Therapy Assessment Goals Three Impairment sleep limited by pain Superintendent Track Goal (LTG) Patient able to resume normal sleep pattern without being woken due to pain LTG Duration 01/27/23 Two Impairment weakness and decreased flexibility hips antonio right greater than left Short Term Goal (STG) patient to be instructed in HEP to address impairments STG Duration 12/29/22 Snf Goal (LTG) Patient to be independent and compliant with HEP and demonstrate ROM WNL and strength 5/5 antonio hips LTG Duration 01/28/23 One Impairment pain right buttock and lateral calf Impairment 5-8/10 on pain scale Short Term Goal (STG) decrease pain to no greater than 5/10 STG Duration 12/28/22 Superintendent Track Goal (LTG) decrease pain to no greater than 2/10 to allow patient to resume all prior activities LTG Duration 01/27/23 Progress Towards Goals Progress Towards Goals Progressing Toward Goals Assessment Summary Assessment Patient demonstrated good understanding of possible contribution to pain of compensatory movement patterns , looked over video of gait on treadmill together. Patient responded well to use of mirror for visual feedback, and demonstrated good understandning of wall posture and his habitual forward bent posture. Physical Therapy Plan Frequency and Duration Frequency of Treatment 2x/Week Duration of treatment (weeks) 8 Plan of Care Start Date 11/27/22 Plan of Care End Date 01/26/23 Therapeutic Interventions Therapeutic Interventions Balance Training,Coordination Training,Gait Training,Home Exercise Program,Joint Mobilizations,Manual Therapy, Neuromuscular Re-education, Patient/Caregiver Education, Self-Care/Home Management, Sensory Integration,Soft Tissue Mobilization,Taping, Therapeutic Activities, Therapeutic Exercises Modalities Hot Packs,Traction- Mechanical ,Ultrasound Next Visit Focus/Plan Next Note Type Treatment Note Next Visit Plan check leg length. Discuss if felt different without traction and resume if feels was helpful. Continue strengthening and flexibility work, iliopsoas release. Continue strengthening.
--- NOTE | 2022-12-27 09:39 | PT.OTN ---
Current Diagnoses Pain in right hip (12/27/22) Difficulty in walking, not elsewhere classified (12/27/22) Weakness (12/27/22) Physical Therapy Treatment Note PT-OP-A Visit Information Start: 11/26/22 08:27 Freq: Status: Active Protocol: Document 12/27/22 12:57 SAK (Rec: 12/27/22 13:49 [facility] [id number]) Out-Patient Physical Therapy Visit Information Visit Information Visit Type Treatment Note Visit Start Time 13:00 Visit Stop Time 13:55 Total Visit Minutes 55 Visit Number 7 PT-OP-B Current Condition Start: 11/26/22 08:27 Freq: Status: Active Protocol: Document 11/29/22 10:30 SAK (Rec: 11/29/22 11:21 SAK [id number]) Current Condition History of Current Condition Onset Date 1 month Current Complaints right hip pain History of Current Condition History antonio JOY. No issues with left. Right hip aching with driving in the past but always went away. Now really flared up and won't go away. Initially could get relief standing up, now no relief, can't sleep in bed due to right hip and calf pain. Now has developed LE edema due to sleeping in recliner left greater than right. Normal sleep position is laying on right side or left side. LOts of Ibuprofen, Acetaminophen. Right big toe N/T but mostly ache not tingle. Crossing right LE over left in sitting at times gives a little relief . Historically walked 4-6 miles per day, currently unable to walk. [address] up to [facility], lots of sitting with travel, states he stretched wrong foot up on bench had sharp pain and worsened pain. Nights are the worst, poor sleep Prior Treatments and Tests x-rays negative. 1 chiropractic appointment, not helpful. Lots of time on ice and heat Treatment Goals Patient/Caregiver Goals eliminate pain, resume prior level of function PT-OP-C Subjective Start: 11/26/22 08:27 Freq: Status: Active Protocol: Document 12/27/22 12:57 SAK (Rec: 12/27/22 13:49 SAK [id number]) OP-PT Subjective Patient Comments Patient Comments Tried sleeping in bed last night, fell asleep briefly, pillow between knees, couldn't relax mentally because waiting for something to hurt, got discomfort down into calf . Moved back to the chair. Asking about exercises and machines he can use when goes to the gym PT-OP-F Manual Assessment Start: 11/26/22 08:27 Freq: Status: Active Protocol: Document 11/27/22 08:18 SAK (Rec: 11/28/22 16:39 [facility] [id number]) Manual Assessments Soft Tissue Assessment Soft Tissue Mobility Assessment TTP right piriformis, glut med , IT band PT-OP-G Mobility & Gait Start: 11/26/22 08:27 Freq: Status: Active Protocol: Document 11/27/22 08:18 SAK (Rec: 11/28/22 16:39 [facility] [id number]) OP Gait Assessment Gait Gait Assistance Required: Independent Assistive Devices Assistive Device None Gait Deviations General Gait Pattern Antalgic Factors Limiting Gait Function Factors Limiting Gait Function Pain PT-OP-H Neuro Start: 11/26/22 08:27 Freq: Status: Active Protocol: Document 11/27/22 08:18 SAK (Rec: 11/28/22 16:39 [facility] [id number]) Sensation Evaluation Gross Sensation Gross Sensation WNL PT-OP-J Posture/Palpation/Skin Start: 11/26/22 08:27 Freq: Status: Active Protocol: Document 11/27/22 08:18 SAK (Rec: 11/28/22 16:39 [facility] [id number]) Posture Evaluation Position Standing Head/C-Spine Posture Forward Head T-Spine Posture Increased Kyphosis L-Spine Posture Decreased Lordosis Shoulder Posture (L) Rounded,(R) Rounded Scapula Posture (L) Protracted,(R) Protracted Pelvis Posture Posterior Tilted Weight Distribution Weight Shifted Posterior Hip Posture (R) Externally Rotated Palpation Assessment Location glut med Palpation Location R Palpation Findings Soft Tissue Tightness, Tenderness IT band Palpation Location R Palpation Findings Soft Tissue Tightness, Tenderness piriformis Palpation Location R Palpation Findings Soft Tissue Tightness, Tenderness PT-OP-K Range of Motion Start: 11/26/22 08:27 Freq: Status: Active Protocol: Document 11/27/22 08:18 SAK (Rec: 11/28/22 16:39 [facility] [id number]) Lumbar Spine Range of Motion Lumbar Spine Active Flexion 30 Extension 10 Rotation Left 45 Rotation Right 45 Lateral Flexion Left 35 Lateral Flexion Right 30 ROM Limitations Soft Tissue Tightness,Pain Hip Goniometric Range of Motion Hip Right Flexion w/Knee Flexed 90 Straight Leg Raise 35 Extension 0 Abduction 35 Internal Rotation 10 External Rotation 40 Left Flexion w/Knee Flexed 90 Straight Leg Raise 40 Extension 0 Abduction 25 Internal Rotation 10 External Rotation 30 PT-OP-L Special Tests Start: 11/26/22 08:27 Freq: Status: Active Protocol: Document 11/27/22 08:18 SAK (Rec: 11/28/22 16:39 [facility] [id number]) Special Tests Lumbar Spine Special Tests Vertical Spine Loading Test Results negative Slump Test Results negative PT-OP-M Strength Start: 11/26/22 08:27 Freq: Status: Active Protocol: Document 11/27/22 08:18 SAK (Rec: 11/28/22 16:39 [facility] [id number]) Hip Strength Hip Manual Muscle Testing Right Flexion (L2) 4 Good Extension (S1) 3+ Fair+ Abduction 4- Good- External Rotation 3+ Fair+ Internal Rotation 4- Good- Left Flexion (L2) 4 Good Extension (S1) 4- Good- Abduction 4- Good- External Rotation 4- Good- Internal Rotation 4 Good Knee Strength Knee Manual Muscle Testing antonio Flexion (S2) 5 Normal Extension (L3) 5 Normal Ankle/Foot Strength Ankle and Foot Manual Muscle Testing antonio Dorsiflexion (L4) 5 Normal Plantarflexion (S1) 5 Normal PT-OP-Q Treatments Start: 11/26/22 08:27 Freq: Status: Active Protocol: Document 12/27/22 12:57 SAK (Rec: 12/27/22 13:49 [facility] [id number]) Cardio Equipment Recumbent Stepper (Sci-Fit) Duration (Minutes) 8 Resistance 2 Seat Position 12 Other 1.2 miles Gym Equipment Cable Column (Body Solid) hip add Resistance 40 Reps/Time 10x2 hip ab Resistance 30 Reps/Time 10x2 hamstring curl Resistance 50 Reps/Time 10x2 Shuttle Recovery hamstring curl Resistance 50 Unilateral Squats Resistance 50 Shuttle Recovery Platform Stable Reps/Time 10x2 Bilateral Squats Resistance 62 Shuttle Recovery Platform Stable Reps/Time 10x2 Therapeutic Exercises Supine Exercises IT band stretch Reps/Minutes 2x30 HS stretch Reps/Minutes 2x30 Standing Exercises wall sits Reps/Minutes 10x5 Comments mirror for visual feedback PT-OP-R Modalities Start: 11/26/22 08:27 Freq: Status: Active Protocol: Document 12/13/22 11:41 TH (Rec: 12/13/22 11:49 [id number]) Spinal Traction Traction Treatment Lumbar traction Method Mechanical Traction Treatment Comment Rosie Lumbar traction PT-OP-T Assessment and Plan Start: 11/26/22 08:27 Freq: Status: Active Protocol: Document 12/27/22 12:57 [facility] (Rec: 12/27/22 13:49 [facility] [id number]) Physical Therapy Assessment Goals Three Impairment sleep limited by pain Halfway Goal (LTG) Patient able to resume normal sleep pattern without being woken due to pain LTG Duration 01/27/23 Two Impairment weakness and decreased flexibility hips antonio right greater than left Short Term Goal (STG) patient to be instructed in HEP to address impairments STG Duration 12/29/22 Halfway Goal (LTG) Patient to be independent and compliant with HEP and demonstrate ROM WNL and strength 5/5 atnonio hips LTG Duration 01/28/23 One Impairment pain right buttock and lateral calf Impairment 5-8/10 on pain scale Short Term Goal (STG) decrease pain to no greater than 5/10 STG Duration 12/28/22 Septic Pump Truck Driver Goal (LTG) decrease pain to no greater than 2/10 to allow patient to resume all prior activities LTG Duration 01/27/23 Assessment Summary Assessment Had anticipated further mechanical traction today but instead patient instructed in correct use of weight machines for use at gym with emphasis on adjustments for fit of machines, core stab during ex; patient demonstrated good understanding. Additionally patient instructed in IT band stretch and supine HS stretch vs current sitting. Ice to right buttock/hip after treatment. Leg length equal, pelvis neutral. Physical Therapy Plan Frequency and Duration Frequency of Treatment 2x/Week Duration of treatment (weeks) 8 Plan of Care Start Date 11/27/22 Plan of Care End Date 01/26/23 Therapeutic Interventions Therapeutic Interventions Balance Training,Coordination Training,Gait Training,Home Exercise Program,Joint Mobilizations,Manual Therapy, Neuromuscular Re-education, Patient/Caregiver Education, Self-Care/Home Management, Sensory Integration,Soft Tissue Mobilization,Taping, Therapeutic Activities, Therapeutic Exercises Modalities Hot Packs,Traction- Mechanical ,Ultrasound Next Visit Focus/Plan Next Note Type Treatment Note Next Visit Plan Assess response to last session, cont ther ex as tolerated for strengthening, flexibility, core stabilization. Iliopsoas release. Mechanical traction
--- NOTE | 2023-01-03 16:42 | PT.OTN ---
Current Diagnoses Pain in right hip (01/03/23) Difficulty in walking, not elsewhere classified (01/03/23) Weakness (01/03/23) Physical Therapy Treatment Note PT-OP-A Visit Information Start: 11/26/22 08:27 Freq: Status: Active Protocol: Document 01/03/23 07:53 SAK (Rec: 01/03/23 08:40 [facility] [id number]) Out-Patient Physical Therapy Visit Information Visit Information Visit Type Treatment Note Visit Start Time 08:00 Visit Stop Time 08:55 Total Visit Minutes 55 Visit Number 8 PT-OP-B Current Condition Start: 11/26/22 08:27 Freq: Status: Active Protocol: Document 11/29/22 10:30 SAK (Rec: 11/29/22 11:21 SAK [id number]) Current Condition History of Current Condition Onset Date 1 month Current Complaints right hip pain History of Current Condition History antonio JOY. No issues with left. Right hip aching with driving in the past but always went away. Now really flared up and won't go away. Initially could get relief standing up, now no relief, can't sleep in bed due to right hip and calf pain. Now has developed LE edema due to sleeping in recliner left greater than right. Normal sleep position is laying on right side or left side. LOts of Ibuprofen, Acetaminophen. Right big toe N/T but mostly ache not tingle. Crossing right LE over left in sitting at times gives a little relief . Historically walked 4-6 miles per day, currently unable to walk. [address] up to [facility], lots of sitting with travel, states he stretched wrong foot up on bench had sharp pain and worsened pain. Nights are the worst, poor sleep Prior Treatments and Tests x-rays negative. 1 chiropractic appointment, not helpful. Lots of time on ice and heat Treatment Goals Patient/Caregiver Goals eliminate pain, resume prior level of function PT-OP-C Subjective Start: 11/26/22 08:27 Freq: Status: Active Protocol: Document 01/03/23 07:53 SAK (Rec: 01/03/23 08:40 [facility] [id number]) OP-PT Subjective Patient Comments Patient Comments Tired due to having in ER last night/early am. States PT has helped him be aware of LE alignment, notices wobbly right leg especially with stairs with knee going in. Hasn't gone to gym yet. Pain never more than 3.5-4/10 lately. Still sleeping in recliner. States after 20 min flat on back on couch pain inc right hip PT-OP-F Manual Assessment Start: 11/26/22 08:27 Freq: Status: Active Protocol: Document 11/27/22 08:18 SAK (Rec: 11/28/22 16:39 [facility] [id number]) Manual Assessments Soft Tissue Assessment Soft Tissue Mobility Assessment TTP right piriformis, glut med , IT band PT-OP-G Mobility & Gait Start: 11/26/22 08:27 Freq: Status: Active Protocol: Document 11/27/22 08:18 SAK (Rec: 11/28/22 16:39 [facility] [id number]) OP Gait Assessment Gait Gait Assistance Required: Independent Assistive Devices Assistive Device None Gait Deviations General Gait Pattern Antalgic Factors Limiting Gait Function Factors Limiting Gait Function Pain PT-OP-H Neuro Start: 11/26/22 08:27 Freq: Status: Active Protocol: Document 11/27/22 08:18 SAK (Rec: 11/28/22 16:39 [facility] [id number]) Sensation Evaluation Gross Sensation Gross Sensation WNL PT-OP-J Posture/Palpation/Skin Start: 11/26/22 08:27 Freq: Status: Active Protocol: Document 11/27/22 08:18 SAK (Rec: 11/28/22 16:39 [facility] [id number]) Posture Evaluation Position Standing Head/C-Spine Posture Forward Head T-Spine Posture Increased Kyphosis L-Spine Posture Decreased Lordosis Shoulder Posture (L) Rounded,(R) Rounded Scapula Posture (L) Protracted,(R) Protracted Pelvis Posture Posterior Tilted Weight Distribution Weight Shifted Posterior Hip Posture (R) Externally Rotated Palpation Assessment Location glut med Palpation Location R Palpation Findings Soft Tissue Tightness, Tenderness IT band Palpation Location R Palpation Findings Soft Tissue Tightness, Tenderness piriformis Palpation Location R Palpation Findings Soft Tissue Tightness, Tenderness PT-OP-K Range of Motion Start: 11/26/22 08:27 Freq: Status: Active Protocol: Document 11/27/22 08:18 SAK (Rec: 11/28/22 16:39 [facility] [id number]) Lumbar Spine Range of Motion Lumbar Spine Active Flexion 30 Extension 10 Rotation Left 45 Rotation Right 45 Lateral Flexion Left 35 Lateral Flexion Right 30 ROM Limitations Soft Tissue Tightness,Pain Hip Goniometric Range of Motion Hip Right Flexion w/Knee Flexed 90 Straight Leg Raise 35 Extension 0 Abduction 35 Internal Rotation 10 External Rotation 40 Left Flexion w/Knee Flexed 90 Straight Leg Raise 40 Extension 0 Abduction 25 Internal Rotation 10 External Rotation 30 PT-OP-L Special Tests Start: 11/26/22 08:27 Freq: Status: Active Protocol: Document 11/27/22 08:18 [facility] (Rec: 11/28/22 16:39 [facility] [id number]) Special Tests Lumbar Spine Special Tests Vertical Spine Loading Test Results negative Slump Test Results negative PT-OP-M Strength Start: 11/26/22 08:27 Freq: Status: Active Protocol: Document 11/27/22 08:18 [facility] (Rec: 11/28/22 16:39 [facility] [id number]) Hip Strength Hip Manual Muscle Testing Right Flexion (L2) 4 Good Extension (S1) 3+ Fair+ Abduction 4- Good- External Rotation 3+ Fair+ Internal Rotation 4- Good- Left Flexion (L2) 4 Good Extension (S1) 4- Good- Abduction 4- Good- External Rotation 4- Good- Internal Rotation 4 Good Knee Strength Knee Manual Muscle Testing antonio Flexion (S2) 5 Normal Extension (L3) 5 Normal Ankle/Foot Strength Ankle and Foot Manual Muscle Testing antonio Dorsiflexion (L4) 5 Normal Plantarflexion (S1) 5 Normal PT-OP-Q Treatments Start: 11/26/22 08:27 Freq: Status: Active Protocol: Document 01/03/23 07:53 [facility] (Rec: 01/03/23 08:40 [facility] [id number]) Cardio Equipment Recumbent Stepper (Sci-Fit) Duration (Minutes) 8 Resistance 2 Seat Position 12 Other 1.2 miles, cues for LE alignment Gym Equipment Sport Cord green, red Exercise Details fwd, side Cord/Resistance green to red Reps/Duration 10x fwd, 5x side Comments mirror for visual feedback with forward, cues for parallel LE's Therapeutic Exercises Sidelying Exercises clam, reverse clam Reps/Minutes 10x Standing Exercises SLS Side bilateral Equipment Used mirror Reps/Minutes 4x ea Comments cues for horizontal belt line/ no leaning chair squat Equipment Used mirror, L2 TB Reps/Minutes 10x3 Comments cues for neutral LE alignment step-ups Equipment Used mirror Reps/Minutes 10 Comments cues for LE alignment Self-Care/Home Management Treatment Education Other Education pillow under knees/thighs when supine use towel under waist in addition to pillow between knees when in s/l; used spine model for visual education in purpose educated further in neutral alignment and used mirror with step-ups and squats for visual cues and correction PT-OP-R Modalities Start: 11/26/22 08:27 Freq: Status: Active Protocol: Document 01/03/23 07:53 [facility] (Rec: 01/03/23 08:46 [facility] [id number]) Spinal Traction Traction Treatment Lumbar traction Method Mechanical,Static Patient Position Hooklying Force Applied (Pounds) 506 Duration of Treatment (Minutes) 10 Traction Treatment Comment Velez Lumbar traction PT-OP-T Assessment and Plan Start: 11/26/22 08:27 Freq: Status: Active Protocol: Document 01/03/23 07:53 [facility] (Rec: 01/03/23 08:40 [facility] [id number]) Physical Therapy Assessment Goals Three Impairment sleep limited by pain Service Cashier Goal (LTG) Patient able to resume normal sleep pattern without being woken due to pain LTG Duration 01/27/23 Two Impairment weakness and decreased flexibility hips antonio right greater than left Short Term Goal (STG) patient to be instructed in HEP to address impairments 01/03/23: goal met, though ongoing progression and modification STG Duration met Residential Goal (LTG) Patient to be independent and compliant with HEP and demonstrate ROM WNL and strength 5/ antonio hips LTG Duration 01/28/23 One Impairment pain right buttock and lateral calf Impairment 5-8/10 on pain scale Short Term Goal (STG) decrease pain to no greater than 5/10 STG Duration 12/28/22 Residential Goal (LTG) decrease pain to no greater than 2/10 to allow patient to resume all prior activities LTG Duration 01/27/23 Assessment Summary Assessment Mirror for visual feedback very helpful for patient in correcting malalignment right LE and awareness during functional tasks; patient improved with ability to self- correct throughout session and will do at home using new HO for HEP. Still difficulty with sleeping in bed; given further education and trial with supported sidelying including towel at waist for neutral alignment Physical Therapy Plan Frequency and Duration Frequency of Treatment 2x/Week Duration of treatment (weeks) 8 Plan of Care Start Date 11/27/22 Plan of Care End Date 01/26/23 Therapeutic Interventions Therapeutic Interventions Balance Training,Coordination Training,Gait Training,Home Exercise Program,Joint Mobilizations,Manual Therapy, Neuromuscular Re-education, Patient/Caregiver Education, Self-Care/Home Management, Sensory Integration,Soft Tissue Mobilization,Taping, Therapeutic Activities, Therapeutic Exercises Modalities Hot Packs,Traction- Mechanical ,Ultrasound Next Visit Focus/Plan Next Note Type Treatment Note Next Visit Plan Assess response to last session, use of support when sleeping, ability to correct alignment with squats and step -ups. Review clam and reverse clamshell. Manual to right piriformis PRN. Moist heat as needed.
--- NOTE | 2023-01-08 16:05 | PT.OTN ---
Current Diagnoses Pain in right hip (01/08/23) Difficulty in walking, not elsewhere classified (01/08/23) Weakness (01/08/23) Physical Therapy Treatment Note PT-OP-A Visit Information Start: 11/26/22 08:27 Freq: Status: Active Protocol: Document 01/08/23 14:59 SAK (Rec: 01/08/23 15:03 [facility] [id number]) Out-Patient Physical Therapy Visit Information Visit Information Visit Type Treatment Note Visit Start Time 14:59 Visit Stop Time 15:55 Total Visit Minutes 56 Visit Number 9 PT-OP-B Current Condition Start: 11/26/22 08:27 Freq: Status: Active Protocol: Document 11/29/22 10:30 SAK (Rec: 11/29/22 11:21 [facility] [id number]) Current Condition History of Current Condition Onset Date 1 month Current Complaints right hip pain History of Current Condition History antonio JOY. No issues with left. Right hip aching with driving in the past but always went away. Now really flared up and won't go away. Initially could get relief standing up, now no relief, can't sleep in bed due to right hip and calf pain. Now has developed LE edema due to sleeping in recliner left greater than right. Normal sleep position is laying on right side or left side. LOts of Ibuprofen, Acetaminophen. Right big toe N/T but mostly ache not tingle. Crossing right LE over left in sitting at times gives a little relief . Historically walked 4-6 miles per day, currently unable to walk. [address] up to [facility], lots of sitting with travel, states he stretched wrong foot up on bench had sharp pain and worsened pain. Nights are the worst, poor sleep Prior Treatments and Tests x-rays negative. 1 chiropractic appointment, not helpful. Lots of time on ice and heat Treatment Goals Patient/Caregiver Goals eliminate pain, resume prior level of function PT-OP-C Subjective Start: 11/26/22 08:27 Freq: Status: Active Protocol: Document 01/08/23 14:59 SAK (Rec: 01/08/23 15:05 [facility] [id number]) OP-PT Subjective Patient Comments Patient Comments Has slept in bed for 2 nights, good progress! PT-OP-F Manual Assessment Start: 11/26/22 08:27 Freq: Status: Active Protocol: Document 11/27/22 08:18 SAK (Rec: 11/28/22 16:39 [facility] [id number]) Manual Assessments Soft Tissue Assessment Soft Tissue Mobility Assessment TTP right piriformis, glut med , IT band PT-OP-G Mobility & Gait Start: 11/26/22 08:27 Freq: Status: Active Protocol: Document 11/27/22 08:18 SAK (Rec: 11/28/22 16:39 [facility] [id number]) OP Gait Assessment Gait Gait Assistance Required: Independent Assistive Devices Assistive Device None Gait Deviations General Gait Pattern Antalgic Factors Limiting Gait Function Factors Limiting Gait Function Pain PT-OP-H Neuro Start: 11/26/22 08:27 Freq: Status: Active Protocol: Document 11/27/22 08:18 SAK (Rec: 11/28/22 16:39 [facility] [id number]) Sensation Evaluation Gross Sensation Gross Sensation WNL PT-OP-J Posture/Palpation/Skin Start: 11/26/22 08:27 Freq: Status: Active Protocol: Document 11/27/22 08:18 [facility] (Rec: 11/28/22 16:39 [facility] [id number]) Posture Evaluation Position Standing Head/C-Spine Posture Forward Head T-Spine Posture Increased Kyphosis L-Spine Posture Decreased Lordosis Shoulder Posture (L) Rounded,(R) Rounded Scapula Posture (L) Protracted,(R) Protracted Pelvis Posture Posterior Tilted Weight Distribution Weight Shifted Posterior Hip Posture (R) Externally Rotated Palpation Assessment Location glut med Palpation Location R Palpation Findings Soft Tissue Tightness, Tenderness IT band Palpation Location R Palpation Findings Soft Tissue Tightness, Tenderness piriformis Palpation Location R Palpation Findings Soft Tissue Tightness, Tenderness PT-OP-K Range of Motion Start: 11/26/22 08:27 Freq: Status: Active Protocol: Document 11/27/22 08:18 [facility] (Rec: 11/28/22 16:39 [facility] [id number]) Lumbar Spine Range of Motion Lumbar Spine Active Flexion 30 Extension 10 Rotation Left 45 Rotation Right 45 Lateral Flexion Left 35 Lateral Flexion Right 30 ROM Limitations Soft Tissue Tightness,Pain Hip Goniometric Range of Motion Hip Right Flexion w/Knee Flexed 90 Straight Leg Raise 35 Extension 0 Abduction 35 Internal Rotation 10 External Rotation 40 Left Flexion w/Knee Flexed 90 Straight Leg Raise 40 Extension 0 Abduction 25 Internal Rotation 10 External Rotation 30 PT-OP-L Special Tests Start: 11/26/22 08:27 Freq: Status: Active Protocol: Document 11/27/22 08:18 [facility] (Rec: 11/28/22 16:39 [facility] [id number]) Special Tests Lumbar Spine Special Tests Vertical Spine Loading Test Results negative Slump Test Results negative PT-OP-M Strength Start: 11/26/22 08:27 Freq: Status: Active Protocol: Document 11/27/22 08:18 [facility] (Rec: 11/28/22 16:39 [facility] [id number]) Hip Strength Hip Manual Muscle Testing Right Flexion (L2) 4 Good Extension (S1) 3+ Fair+ Abduction 4- Good- External Rotation 3+ Fair+ Internal Rotation 4- Good- Left Flexion (L2) 4 Good Extension (S1) 4- Good- Abduction 4- Good- External Rotation 4- Good- Internal Rotation 4 Good Knee Strength Knee Manual Muscle Testing antonio Flexion (S2) 5 Normal Extension (L3) 5 Normal Ankle/Foot Strength Ankle and Foot Manual Muscle Testing antonio Dorsiflexion (L4) 5 Normal Plantarflexion (S1) 5 Normal PT-OP-Q Treatments Start: 11/26/22 08:27 Freq: Status: Active Protocol: Document 01/08/23 14:59 SAK (Rec: 01/08/23 15:03 [facility] [id number]) Cardio Equipment Recumbent Stepper (Sci-Fit) Duration (Minutes) 8 Resistance 2.5 Seat Position 12 Other LE's only, cues for LE alignment Therapeutic Exercises Standing Exercises SLS Side bilateral Equipment Used mirror, blue foam Reps/Minutes 4x ea Comments cues for horizontal belt line/ no leaning chair squat Equipment Used mirror, L2 TB Reps/Minutes 10x3 Comments cues for neutral LE alignment step-ups Side bilateral Equipment Used mirror, 6 box, 4 box with blue foam Reps/Minutes 10 Comments cues for LE alignment Self-Care/Home Management Treatment Education Other Education pillow under knees/thighs when supine use towel under waist in addition to pillow between knees when in s/l; used spine model for visual education in purpose educated further in neutral alignment and used mirror with step-ups and squats for visual cues and correction PT-OP-R Modalities Start: 11/26/22 08:27 Freq: Status: Active Protocol: Document 01/08/23 14:59 [facility] (Rec: 01/08/23 15:03 [facility] [id number]) Spinal Traction Traction Treatment Lumbar traction Method Mechanical,Static Patient Position Hooklying Force Applied (Pounds) 506 Duration of Treatment (Minutes) 10 Traction Treatment Comment Velez Lumbar traction PT-OP-T Assessment and Plan Start: 11/26/22 08:27 Freq: Status: Active Protocol: Document 01/08/23 14:59 [facility] (Rec: 01/08/23 15:03 [facility] [id number]) Physical Therapy Assessment Goals Three Impairment sleep limited by pain Halfway Goal (LTG) Patient able to resume normal sleep pattern without being woken due to pain LTG Duration 01/27/23 Two Impairment weakness and decreased flexibility hips antonio right greater than left Short Term Goal (STG) patient to be instructed in HEP to address impairments 01/03/23: goal met, though ongoing progression and modification STG Duration met Archives Technician Goal (LTG) Patient to be independent and compliant with HEP and demonstrate ROM WNL and strength / antonio hips LTG Duration 01/28/23 One Impairment pain right buttock and lateral calf Impairment 5-8/10 on pain scale Short Term Goal (STG) decrease pain to no greater than 5/10 STG Duration 12/28/22 Halfway Goal (LTG) decrease pain to no greater than 2/10 to allow patient to resume all prior activities LTG Duration 01/27/23 Progress Towards Goals Progress Towards Goals Progressing Toward Goals Assessment Summary Assessment Good progress, dec pain, able to sleep in bed x 2 nights. Good compliance to HEP. Patient benfits from use of mirror with improving insight into ability to correct alignment with activation of hip musculature. Physical Therapy Plan Frequency and Duration Frequency of Treatment 2x/Week Duration of treatment (weeks) 8 Plan of Care Start Date 11/27/22 Plan of Care End Date 01/26/23 Therapeutic Interventions Therapeutic Interventions Balance Training,Coordination Training,Gait Training,Home Exercise Program,Joint Mobilizations,Manual Therapy, Neuromuscular Re-education, Patient/Caregiver Education, Self-Care/Home Management, Sensory Integration,Soft Tissue Mobilization,Taping, Therapeutic Activities, Therapeutic Exercises Modalities Hot Packs,Traction- Mechanical ,Ultrasound Next Visit Focus/Plan Next Note Type Progress Note Next Visit Plan Continue LE strengthening, emphasis on muscle activation sequencing and LE alignment correction. Review potential contribution of habitual posturing and movements. Continue traction. Manual to TFL, glut med, piriformis PRN.
--- NOTE | 2023-01-10 13:14 | PT.OTN ---
Current Diagnoses Pain in right hip (01/10/23) Difficulty in walking, not elsewhere classified (01/10/23) Weakness (01/10/23) Physical Therapy Treatment Note PT-OP-A Visit Information Start: 11/26/22 08:27 Freq: Status: Active Protocol: Document 01/10/23 08:45 SAK (Rec: 01/10/23 09:[address] [facility] [id number]) Out-Patient Physical Therapy Visit Information Visit Information Visit Type Treatment Note Visit Start Time 08:55 Visit Stop Time 09:30 Total Visit Minutes 51 Visit Number 10 PT-OP-B Current Condition Start: 11/26/22 08:27 Freq: Status: Active Protocol: Document 11/29/22 10:30 SAK (Rec: 11/29/22 11:21 SAK [id number]) Current Condition History of Current Condition Onset Date 1 month Current Complaints right hip pain History of Current Condition History antonio JOY. No issues with left. Right hip aching with driving in the past but always went away. Now really flared up and won't go away. Initially could get relief standing up, now no relief, can't sleep in bed due to right hip and calf pain. Now has developed LE edema due to sleeping in recliner left greater than right. Normal sleep position is laying on right side or left side. LOts of Ibuprofen, Acetaminophen. Right big toe N/T but mostly ache not tingle. Crossing right LE over left in sitting at times gives a little relief . Historically walked 4-6 miles per day, currently unable to walk. [address] up to [facility], lots of sitting with travel, states he stretched wrong foot up on bench had sharp pain and worsened pain. Nights are the worst, poor sleep Prior Treatments and Tests x-rays negative. 1 chiropractic appointment, not helpful. Lots of time on ice and heat Treatment Goals Patient/Caregiver Goals eliminate pain, resume prior level of function PT-OP-C Subjective Start: 11/26/22 08:27 Freq: Status: Active Protocol: Document 01/10/23 08:45 SAK (Rec: 01/10/23 09:30 SAK [id number]) OP-PT Subjective Patient Comments Patient Comments After PT session on Sunday, lifted bag of soil amendment, it slipped and he aggravated painful area. PT-OP-F Manual Assessment Start: 11/26/22 08:27 Freq: Status: Active Protocol: Document 11/27/22 08:18 SAK (Rec: 11/28/22 16:[address] [facility] [id number]) Manual Assessments Soft Tissue Assessment Soft Tissue Mobility Assessment TTP right piriformis, glut med , IT band PT-OP-G Mobility & Gait Start: 11/26/22 08:27 Freq: Status: Active Protocol: Document 11/27/22 08:18 SAK (Rec: 11/28/22 16:[address] [facility] [id number]) OP Gait Assessment Gait Gait Assistance Required: Independent Assistive Devices Assistive Device None Gait Deviations General Gait Pattern Antalgic Factors Limiting Gait Function Factors Limiting Gait Function Pain PT-OP-H Neuro Start: 11/26/22 08:27 Freq: Status: Active Protocol: Document 11/27/22 08:18 SAK (Rec: 11/28/22 16:[address] [facility] [id number]) Sensation Evaluation Gross Sensation Gross Sensation WNL PT-OP-J Posture/Palpation/Skin Start: 11/26/22 08:27 Freq: Status: Active Protocol: Document 11/27/22 08:18 SAK (Rec: 11/28/22 16:[address] [facility] [id number]) Posture Evaluation Position Standing Head/C-Spine Posture Forward Head T-Spine Posture Increased Kyphosis L-Spine Posture Decreased Lordosis Shoulder Posture (L) Rounded,(R) Rounded Scapula Posture (L) Protracted,(R) Protracted Pelvis Posture Posterior Tilted Weight Distribution Weight Shifted Posterior Hip Posture (R) Externally Rotated Palpation Assessment Location glut med Palpation Location R Palpation Findings Soft Tissue Tightness, Tenderness IT band Palpation Location R Palpation Findings Soft Tissue Tightness, Tenderness piriformis Palpation Location R Palpation Findings Soft Tissue Tightness, Tenderness PT-OP-K Range of Motion Start: 11/26/22 08:27 Freq: Status: Active Protocol: Document 11/27/22 08:18 SAK (Rec: 11/28/22 16:[address] [facility] [id number]) Lumbar Spine Range of Motion Lumbar Spine Active Flexion 30 Extension 10 Rotation Left 45 Rotation Right 45 Lateral Flexion Left 35 Lateral Flexion Right 30 ROM Limitations Soft Tissue Tightness,Pain Hip Goniometric Range of Motion Hip Right Flexion w/Knee Flexed 90 Straight Leg Raise 35 Extension 0 Abduction 35 Internal Rotation 10 External Rotation 40 Left Flexion w/Knee Flexed 90 Straight Leg Raise 40 Extension 0 Abduction 25 Internal Rotation 10 External Rotation 30 PT-OP-L Special Tests Start: 11/26/22 08:27 Freq: Status: Active Protocol: Document 11/27/22 08:[address] [facility] (Rec: 11/28/22 16:[address] [facility] [id number]) Special Tests Lumbar Spine Special Tests Vertical Spine Loading Test Results negative Slump Test Results negative PT-OP-M Strength Start: 11/26/22 08:27 Freq: Status: Active Protocol: Document 11/27/22 08:18 SAK (Rec: 11/28/22 16:[address] [facility] [id number]) Hip Strength Hip Manual Muscle Testing Right Flexion (L2) 4 Good Extension (S1) 3+ Fair+ Abduction 4- Good- External Rotation 3+ Fair+ Internal Rotation 4- Good- Left Flexion (L2) 4 Good Extension (S1) 4- Good- Abduction 4- Good- External Rotation 4- Good- Internal Rotation 4 Good Knee Strength Knee Manual Muscle Testing antonio Flexion (S2) 5 Normal Extension (L3) 5 Normal Ankle/Foot Strength Ankle and Foot Manual Muscle Testing antonio Dorsiflexion (L4) 5 Normal Plantarflexion (S1) 5 Normal PT-OP-Q Treatments Start: 11/26/22 08:27 Freq: Status: Active Protocol: Document 01/10/23 08:[address] [facility] (Rec: 01/10/23 09:[address] [facility] [id number]) Therapeutic Exercises Supine Exercises bridge, single leg bridge Reps/Minutes 10x each Raymon stretch Reps/Minutes 2x30 Comments end of table Prone Exercises plank Reps/Minutes 2x10 Sidelying Exercises side plank Reps/Minutes 2x10 clam, reverse clam Reps/Minutes 10x Comments reverse clam with L1 TB, cues to not roll back with clam Manual Therapy Treatment Other Other Manual Treatments MMT and flexibility testing LE 's PT-OP-R Modalities Start: 11/26/22 08:27 Freq: Status: Active Protocol: Document 01/08/23 14:59 SAK (Rec: 01/08/23 15:[address] [facility] [id number]) Spinal Traction Traction Treatment Lumbar traction Method Mechanical,Static Patient Position Hooklying Force Applied (Pounds) 506 Duration of Treatment (Minutes) 10 Traction Treatment Comment Velez Lumbar traction PT-OP-T Assessment and Plan Start: 11/26/22 08:27 Freq: Status: Active Protocol: Document 01/10/23 08:[address] [facility] (Rec: 01/10/23 09:[address] [facility] [id number]) Physical Therapy Assessment Goals Three Impairment sleep limited by pain Half-Way Goal (LTG) Patient able to resume normal sleep pattern without being woken due to pain 01/10/23: good goal progress. Has slept 2 nights in bed with good tolerance. LTG Duration 01/27/23 Two Impairment weakness and decreased flexibility hips antonio right greater than left Short Term Goal (STG) patient to be instructed in HEP to address impairments 01/03/23: goal met, though ongoing progression and modification STG Duration met Half-Way Goal (LTG) Patient to be independent and compliant with HEP and demonstrate ROM WNL and strength 01/05 antonio hips LTG Duration 01/28/23 One Impairment pain right buttock and lateral calf Impairment 5-8/10 on pain scale Short Term Goal (STG) decrease pain to no greater than 5/10 STG Duration 12/28/22 Development Mechanic Goal (LTG) decrease pain to no greater than 2/10 to allow patient to resume all prior activities LTG Duration 01/27/23 Progress Towards Goals Progress Towards Goals Progressing Toward Goals Assessment Summary Assessment Pain inc today to 2-3/10 after heavy yardwork but overall has been reporting good goal progress, good compliance to HEP. Progressed HEP today with addition of Raymon stretch, bridge, single leg bridge. Will benefit from further PT to help him fully achieve his goals. No traction today due to reassessment for progress note . Physical Therapy Plan Frequency and Duration Frequency of Treatment 2x/Week Duration of treatment (weeks) 8 Plan of Care Start Date 11/27/22 Plan of Care End Date 01/26/23 Therapeutic Interventions Therapeutic Interventions Balance Training,Coordination Training,Gait Training,Home Exercise Program,Joint Mobilizations,Manual Therapy, Neuromuscular Re-education, Patient/Caregiver Education, Self-Care/Home Management, Sensory Integration,Soft Tissue Mobilization,Taping, Therapeutic Activities, Therapeutic Exercises Modalities Hot Packs,Traction- Mechanical ,Ultrasound Next Visit Focus/Plan Next Note Type Treatment Note Next Visit Plan Continue LE strengthening, emphasis on muscle activation sequencing and LE alignment correction. Review potential contribution of habitual posturing and movements. Continue traction. Manual to TFL, glut med, piriformis PRN.
--- NOTE | 2023-01-15 15:52 | PT.OTN ---
Current Diagnoses Pain in right hip (01/15/23) Difficulty in walking, not elsewhere classified (01/15/23) Weakness (01/15/23) Physical Therapy Treatment Note PT-OP-A Visit Information Start: 11/26/22 08:27 Freq: Status: Active Protocol: Document 01/15/23 15:02 [facility] (Rec: 01/15/23 15:52 [facility] [id number]) Out-Patient Physical Therapy Visit Information Visit Information Visit Type Treatment Note Visit Start Time 15:02 Visit Stop Time 15:55 Total Visit Minutes 53 Visit Number 11 PT-OP-B Current Condition Start: 11/26/22 08:27 Freq: Status: Active Protocol: Document 11/29/22 10:30 [facility] (Rec: 11/29/22 11:21 [facility]AK [id number]) Current Condition History of Current Condition Onset Date 1 month Current Complaints right hip pain History of Current Condition History antonio JOY. No issues with left. Right hip aching with driving in the past but always went away. Now really flared up and won't go away. Initially could get relief standing up, now no relief, can't sleep in bed due to right hip and calf pain. Now has developed LE edema due to sleeping in recliner left greater than right. Normal sleep position is laying on right side or left side. LOts of Ibuprofen, Acetaminophen. Right big toe N/T but mostly ache not tingle. Crossing right LE over left in sitting at times gives a little relief . Historically walked 4-6 miles per day, currently unable to walk. [address] up to [facility], lots of sitting with travel, states he stretched wrong foot up on bench had sharp pain and worsened pain. Nights are the worst, poor sleep Prior Treatments and Tests x-rays negative. 1 chiropractic appointment, not helpful. Lots of time on ice and heat Treatment Goals Patient/Caregiver Goals eliminate pain, resume prior level of function PT-OP-C Subjective Start: 11/26/22 08:27 Freq: Status: Active Protocol: Document 01/15/23 15:02 [facility]AK (Rec: 01/15/23 15:52 [facility] [id number]) OP-PT Subjective Patient Comments Patient Comments Busy weekend, tolerated fair. Did some yardwork. Also lots of driving with resulting increase in buttock pain. PT-OP-F Manual Assessment Start: 11/26/22 08:27 Freq: Status: Active Protocol: Document 11/27/22 08:18 [facility]AK (Rec: 11/28/22 16:39 [facility] [id number]) Manual Assessments Soft Tissue Assessment Soft Tissue Mobility Assessment TTP right piriformis, glut med , IT band PT-OP-G Mobility & Gait Start: 11/26/22 08:27 Freq: Status: Active Protocol: Document 11/27/22 08:18 [facility]AK (Rec: 11/28/22 16:39 [facility] [id number]) OP Gait Assessment Gait Gait Assistance Required: Independent Assistive Devices Assistive Device None Gait Deviations General Gait Pattern Antalgic Factors Limiting Gait Function Factors Limiting Gait Function Pain PT-OP-H Neuro Start: 11/26/22 08:27 Freq: Status: Active Protocol: Document 11/27/22 08:18 [facility]AK (Rec: 11/28/22 16:39 [facility] [id number]) Sensation Evaluation Gross Sensation Gross Sensation WNL PT-OP-J Posture/Palpation/Skin Start: 11/26/22 08:27 Freq: Status: Active Protocol: Document 11/27/22 08:18 [facility]AK (Rec: 11/28/22 16:39 [facility] [id number]) Posture Evaluation Position Standing Head/C-Spine Posture Forward Head T-Spine Posture Increased Kyphosis L-Spine Posture Decreased Lordosis Shoulder Posture (L) Rounded,(R) Rounded Scapula Posture (L) Protracted,(R) Protracted Pelvis Posture Posterior Tilted Weight Distribution Weight Shifted Posterior Hip Posture (R) Externally Rotated Palpation Assessment Location glut med Palpation Location R Palpation Findings Soft Tissue Tightness, Tenderness IT band Palpation Location R Palpation Findings Soft Tissue Tightness, Tenderness piriformis Palpation Location R Palpation Findings Soft Tissue Tightness, Tenderness PT-OP-K Range of Motion Start: 11/26/22 08:27 Freq: Status: Active Protocol: Document 11/27/22 08:18 [facility]AK (Rec: 11/28/22 16:39 [facility] [id number]) Lumbar Spine Range of Motion Lumbar Spine Active Flexion 30 Extension 10 Rotation Left 45 Rotation Right 45 Lateral Flexion Left 35 Lateral Flexion Right 30 ROM Limitations Soft Tissue Tightness,Pain Hip Goniometric Range of Motion Hip Right Flexion w/Knee Flexed 90 Straight Leg Raise 35 Extension 0 Abduction 35 Internal Rotation 10 External Rotation 40 Left Flexion w/Knee Flexed 90 Straight Leg Raise 40 Extension 0 Abduction 25 Internal Rotation 10 External Rotation 30 PT-OP-L Special Tests Start: 11/26/22 08:27 Freq: Status: Active Protocol: Document 11/27/22 08:18 [facility] (Rec: 11/28/22 16:39 [facility] [id number]) Special Tests Lumbar Spine Special Tests Vertical Spine Loading Test Results negative Slump Test Results negative PT-OP-M Strength Start: 11/26/22 08:27 Freq: Status: Active Protocol: Document 11/27/22 08:18 [facility] (Rec: 11/28/22 16:39 [facility] [id number]) Hip Strength Hip Manual Muscle Testing Right Flexion (L2) 4 Good Extension (S1) 3+ Fair+ Abduction 4- Good- External Rotation 3+ Fair+ Internal Rotation 4- Good- Left Flexion (L2) 4 Good Extension (S1) 4- Good- Abduction 4- Good- External Rotation 4- Good- Internal Rotation 4 Good Knee Strength Knee Manual Muscle Testing antonio Flexion (S2) 5 Normal Extension (L3) 5 Normal Ankle/Foot Strength Ankle and Foot Manual Muscle Testing antonio Dorsiflexion (L4) 5 Normal Plantarflexion (S1) 5 Normal PT-OP-Q Treatments Start: 11/26/22 08:27 Freq: Status: Active Protocol: Document 01/15/23 15:02 [facility] (Rec: 01/15/23 15:52 [facility] [id number]) Cardio Equipment Recumbent Stepper (Sci-Fit) Duration (Minutes) 8 Resistance 2.5 Seat Position 12 Other LE's only, cues for LE alignment Therapeutic Exercises Sidelying Exercises clam, reverse clam Equipment Used red band Reps/Minutes 10x Comments reverse clam with L1 TB, cues to not roll back with clam Standing Exercises SLS Side bilateral Equipment Used mirror, blue foam Reps/Minutes 5x ea Comments cues for horizontal belt line/ no leaning chair squat Equipment Used mirror, red band distal thighs Reps/Minutes 10x3 Comments cues for neutral LE alignment step-ups Side bilateral Equipment Used mirror, 6 box, 4 box with blue foam Reps/Minutes 10 Comments cues for LE alignment resisted walk Standing Exercise Name monster walks fwd/bck/side Equipment Used red band Comments cues for slower pace, level pelvis, slower trailing leg PT-OP-R Modalities Start: 11/26/22 08:27 Freq: Status: Active Protocol: Document 01/15/23 15:02 [facility] (Rec: 01/15/23 15:52 [facility] [id number]) Spinal Traction Traction Treatment Lumbar traction Method Mechanical,Static Patient Position Hooklying Force Applied (Pounds) 506 Duration of Treatment (Minutes) 10 Traction Treatment Comment Velez Lumbar traction PT-OP-T Assessment and Plan Start: 11/26/22 08:27 Freq: Status: Active Protocol: Document 01/15/23 15:02 [facility] (Rec: 01/15/23 15:52 [facility] [id number]) Physical Therapy Assessment Goals Three Impairment sleep limited by pain Form Press Operator Goal (LTG) Patient able to resume normal sleep pattern without being woken due to pain 01/10/23: good goal progress. Has slept 2 nights in bed with good tolerance. LTG Duration 01/27/23 Two Impairment weakness and decreased flexibility hips antonio right greater than left Short Term Goal (STG) patient to be instructed in HEP to address impairments 01/03/23: goal met, though ongoing progression and modification STG Duration met Form Press Operator Goal (LTG) Patient to be independent and compliant with HEP and demonstrate ROM WNL and strength 01/05 antonio hips LTG Duration 01/28/23 One Impairment pain right buttock and lateral calf Impairment 5-8/10 on pain scale Short Term Goal (STG) decrease pain to no greater than 5/10 STG Duration 12/28/22 Jail Goal (LTG) decrease pain to no greater than 2/10 to allow patient to resume all prior activities LTG Duration 01/27/23 Assessment Summary Assessment NOting continued asymmetry of LE's with step-ups and squats with patient demonstrating improved understanding and awareness with mirror feedback . Physical Therapy Plan Frequency and Duration Frequency of Treatment 2x/Week Duration of treatment (weeks) 8 Plan of Care Start Date 11/27/22 Plan of Care End Date 01/26/23 Therapeutic Interventions Therapeutic Interventions Balance Training,Coordination Training,Gait Training,Home Exercise Program,Joint Mobilizations,Manual Therapy, Neuromuscular Re-education, Patient/Caregiver Education, Self-Care/Home Management, Sensory Integration,Soft Tissue Mobilization,Taping, Therapeutic Activities, Therapeutic Exercises Modalities Hot Packs,Traction- Mechanical ,Ultrasound Next Visit Focus/Plan Next Note Type Treatment Note Next Visit Plan Continue PT with emphasis on hip and core strengthening and stabilization, manual and mechanical traction PRN.
--- NOTE | 2023-01-17 16:01 | PT.OTN ---
Current Diagnoses Pain in right hip (01/17/23) Difficulty in walking, not elsewhere classified (01/17/23) Weakness (01/17/23) Physical Therapy Treatment Note PT-OP-A Visit Information Start: 11/26/22 08:27 Freq: Status: Active Protocol: Document 01/17/23 15:02 [facility] (Rec: 01/17/23 16:00 [facility] [id number]) Out-Patient Physical Therapy Visit Information Visit Information Visit Type Treatment Note Visit Start Time 15:02 Visit Stop Time 15:55 Total Visit Minutes 57 Visit Number 12 PT-OP-B Current Condition Start: 11/26/22 08:27 Freq: Status: Active Protocol: Document 11/29/22 10:30 [facility]AK (Rec: 11/29/22 11:21 [facility] [id number]) Current Condition History of Current Condition Onset Date 1 month Current Complaints right hip pain History of Current Condition History antonio JOY. No issues with left. Right hip aching with driving in the past but always went away. Now really flared up and won't go away. Initially could get relief standing up, now no relief, can't sleep in bed due to right hip and calf pain. Now has developed LE edema due to sleeping in recliner left greater than right. Normal sleep position is laying on right side or left side. LOts of Ibuprofen, Acetaminophen. Right big toe N/T but mostly ache not tingle. Crossing right LE over left in sitting at times gives a little relief . Historically walked 4-6 miles per day, currently unable to walk. [address] up to [facility], lots of sitting with travel, states he stretched wrong foot up on bench had sharp pain and worsened pain. Nights are the worst, poor sleep Prior Treatments and Tests x-rays negative. 1 chiropractic appointment, not helpful. Lots of time on ice and heat Treatment Goals Patient/Caregiver Goals eliminate pain, resume prior level of function PT-OP-C Subjective Start: 11/26/22 08:27 Freq: Status: Active Protocol: Document 01/17/23 15:02 [facility] (Rec: 01/17/23 16:00 [facility] [id number]) OP-PT Subjective Patient Comments Patient Comments By the time got done with HEP yesterday was exhausted. PT helpful last session. PT-OP-F Manual Assessment Start: 11/26/22 08:27 Freq: Status: Active Protocol: Document 11/27/22 08:18 [facility]AK (Rec: 11/28/22 16:39 [facility] [id number]) Manual Assessments Soft Tissue Assessment Soft Tissue Mobility Assessment TTP right piriformis, glut med , IT band PT-OP-G Mobility & Gait Start: 11/26/22 08:27 Freq: Status: Active Protocol: Document 11/27/22 08:18 [facility]AK (Rec: 11/28/22 16:39 [facility] [id number]) OP Gait Assessment Gait Gait Assistance Required: Independent Assistive Devices Assistive Device None Gait Deviations General Gait Pattern Antalgic Factors Limiting Gait Function Factors Limiting Gait Function Pain PT-OP-H Neuro Start: 11/26/22 08:27 Freq: Status: Active Protocol: Document 11/27/22 08:18 [facility]AK (Rec: 11/28/22 16:39 [facility] [id number]) Sensation Evaluation Gross Sensation Gross Sensation WNL PT-OP-J Posture/Palpation/Skin Start: 11/26/22 08:27 Freq: Status: Active Protocol: Document 11/27/22 08:18 [facility]AK (Rec: 11/28/22 16:39 [facility] [id number]) Posture Evaluation Position Standing Head/C-Spine Posture Forward Head T-Spine Posture Increased Kyphosis L-Spine Posture Decreased Lordosis Shoulder Posture (L) Rounded,(R) Rounded Scapula Posture (L) Protracted,(R) Protracted Pelvis Posture Posterior Tilted Weight Distribution Weight Shifted Posterior Hip Posture (R) Externally Rotated Palpation Assessment Location glut med Palpation Location R Palpation Findings Soft Tissue Tightness, Tenderness IT band Palpation Location R Palpation Findings Soft Tissue Tightness, Tenderness piriformis Palpation Location R Palpation Findings Soft Tissue Tightness, Tenderness PT-OP-K Range of Motion Start: 11/26/22 08:27 Freq: Status: Active Protocol: Document 11/27/22 08:18 [facility]AK (Rec: 11/28/22 16:39 [facility] [id number]) Lumbar Spine Range of Motion Lumbar Spine Active Flexion 30 Extension 10 Rotation Left 45 Rotation Right 45 Lateral Flexion Left 35 Lateral Flexion Right 30 ROM Limitations Soft Tissue Tightness,Pain Hip Goniometric Range of Motion Hip Right Flexion w/Knee Flexed 90 Straight Leg Raise 35 Extension 0 Abduction 35 Internal Rotation 10 External Rotation 40 Left Flexion w/Knee Flexed 90 Straight Leg Raise 40 Extension 0 Abduction 25 Internal Rotation 10 External Rotation 30 PT-OP-L Special Tests Start: 11/26/22 08:27 Freq: Status: Active Protocol: Document 11/27/22 08:18 [facility] (Rec: 11/28/22 16:39 [facility] [id number]) Special Tests Lumbar Spine Special Tests Vertical Spine Loading Test Results negative Slump Test Results negative PT-OP-M Strength Start: 11/26/22 08:27 Freq: Status: Active Protocol: Document 11/27/22 08:18 [facility] (Rec: 11/28/22 16:39 [facility] [id number]) Hip Strength Hip Manual Muscle Testing Right Flexion (L2) 4 Good Extension (S1) 3+ Fair+ Abduction 4- Good- External Rotation 3+ Fair+ Internal Rotation 4- Good- Left Flexion (L2) 4 Good Extension (S1) 4- Good- Abduction 4- Good- External Rotation 4- Good- Internal Rotation 4 Good Knee Strength Knee Manual Muscle Testing antonio Flexion (S2) 5 Normal Extension (L3) 5 Normal Ankle/Foot Strength Ankle and Foot Manual Muscle Testing antonio Dorsiflexion (L4) 5 Normal Plantarflexion (S1) 5 Normal PT-OP-Q Treatments Start: 11/26/22 08:27 Freq: Status: Active Protocol: Document 01/17/23 15:02 [facility] (Rec: 01/17/23 16:00 [facility] [id number]) Cardio Equipment Recumbent Stepper (Sci-Fit) Duration (Minutes) 8 Resistance 3.0 Seat Position 12 Other LE's only, cues for LE alignment Gym Equipment Shuttle Recovery Unilateral Squats Details cues for LE alignment Resistance 50 Shuttle Recovery Platform Stable Reps/Time 10x2 Shuttle Balance chains red Details WBOS EO bal and wt shift side to side, f/b Therapeutic Exercises Supine Exercises Raymon stretch Reps/Minutes 2x30 Comments end of table, manual assist for LE alignment Sidelying Exercises clam, reverse clam Sidelying Exercise Name HEP Standing Exercises chair squat Equipment Used mirror, red band distal thighs , blue foam Reps/Minutes 10x3 Comments cues for neutral LE alignment Manual Therapy Treatment Soft Tissue Mobilization piriformis Body Location right Mobilization Type Myofascial Release,Strumming, Sustained Pressure Intensity/Depth Moderate Body Position Sidelying HS, ITB, lateral calf Body Location right Mobilization Type Myofascial Release,Strumming, Sustained Pressure Intensity/Depth Moderate Body Position Sidelying PT-OP-R Modalities Start: 11/26/22 08:27 Freq: Status: Active Protocol: Document 01/17/23 15:02 [facility] (Rec: 01/17/23 16:00 [facility] [id number]) Hot Pack/Cold Pack Treatment Hot Pack Location right buttock, IT band Patient Position Sidelying Treatment Duration (minutes) 15 Spinal Traction Traction Treatment Lumbar traction Method Mechanical,Static Patient Position Hooklying Force Applied (Pounds) 60 Duration of Treatment (Minutes) 10 Traction Treatment Comment Velez Lumbar traction Lumbar Traction Treatment Comment Velez traction for lumbar spine PT-OP-T Assessment and Plan Start: 11/26/22 08:27 Freq: Status: Active Protocol: Document 01/17/23 15:02 [facility] (Rec: 01/17/23 16:00 [facility] [id number]) Physical Therapy Assessment Goals Three Impairment sleep limited by pain Half-Way Goal (LTG) Patient able to resume normal sleep pattern without being woken due to pain 01/10/23: good goal progress. Has slept 2 nights in bed with good tolerance. LTG Duration 01/27/23 Two Impairment weakness and decreased flexibility hips antonio right greater than left Short Term Goal (STG) patient to be instructed in HEP to address impairments 01/03/23: goal met, though ongoing progression and modification STG Duration met Fur Liner Goal (LTG) Patient to be independent and compliant with HEP and demonstrate ROM WNL and strength 01/05 antonio hips LTG Duration 01/28/23 One Impairment pain right buttock and lateral calf Impairment 5-8/10 on pain scale Short Term Goal (STG) decrease pain to no greater than 5/10 01/03/25: good goal progress, goal met. STG Duration goal met Half-Way Goal (LTG) decrease pain to no greater than 2/10 to allow patient to resume all prior activities LTG Duration 01/27/23 Progress Towards Goals Progress Towards Goals Progressing Toward Goals Assessment Summary Assessment Added shuttle balance and wt shifts. Per patient request inc manual techniques to piriformis and IT band instead of mechanical traction today. Continues to improve with alignment awareness. With Raymon stretch right LE with excess abduction, manual assist for neutral LE alignment and stretch; patient to have girlfriend assist. Physical Therapy Plan Frequency and Duration Frequency of Treatment 2x/Week Duration of treatment (weeks) 8 Plan of Care Start Date 11/27/22 Plan of Care End Date 01/26/23 Therapeutic Interventions Therapeutic Interventions Balance Training,Coordination Training,Gait Training,Home Exercise Program,Joint Mobilizations,Manual Therapy, Neuromuscular Re-education, Patient/Caregiver Education, Self-Care/Home Management, Sensory Integration,Soft Tissue Mobilization,Taping, Therapeutic Activities, Therapeutic Exercises Modalities Hot Packs,Traction- Mechanical ,Ultrasound Next Visit Focus/Plan Next Note Type Treatment Note Next Visit Plan Assess response to last session with increased manual techniques to piriformis and IT band. Anticipate 2 further appointments then discharge to independent [facility] and self- management.
--- NOTE | 2023-01-22 16:09 | PT.OTN ---
Current Diagnoses Pain in right hip (01/22/23) Difficulty in walking, not elsewhere classified (01/22/23) Weakness (01/22/23) Physical Therapy Treatment Note PT-OP-A Visit Information Start: 11/26/22 08:27 Freq: Status: Active Protocol: Document 01/22/23 15:01 [facility] (Rec: 01/22/23 16:09 [facility] [id number]) Out-Patient Physical Therapy Visit Information Visit Information Visit Type Treatment Note Visit Start Time 15:02 Visit Stop Time 15:55 Total Visit Minutes 55 Visit Number 13 PT-OP-B Current Condition Start: 11/26/22 08:27 Freq: Status: Active Protocol: Document 11/29/22 10:30 [facility] (Rec: 11/29/22 11:21 [facility] [id number]) Current Condition History of Current Condition Onset Date 1 month Current Complaints right hip pain History of Current Condition History antonio JOY. No issues with left. Right hip aching with driving in the past but always went away. Now really flared up and won't go away. Initially could get relief standing up, now no relief, can't sleep in bed due to right hip and calf pain. Now has developed LE edema due to sleeping in recliner left greater than right. Normal sleep position is laying on right side or left side. LOts of Ibuprofen, Acetaminophen. Right big toe N/T but mostly ache not tingle. Crossing right LE over left in sitting at times gives a little relief . Historically walked 4-6 miles per day, currently unable to walk. [address] up to [facility], lots of sitting with travel, states he stretched wrong foot up on bench had sharp pain and worsened pain. Nights are the worst, poor sleep Prior Treatments and Tests x-rays negative. 1 chiropractic appointment, not helpful. Lots of time on ice and heat Treatment Goals Patient/Caregiver Goals eliminate pain, resume prior level of function PT-OP-C Subjective Start: 11/26/22 08:27 Freq: Status: Active Protocol: Document 01/22/23 15:01 [facility] (Rec: 01/22/23 16:09 [facility] [id number]) OP-PT Subjective Patient Comments Patient Comments I hurt myself Drove to to [place], started to have long distance ache in buttock, moving LE in as PT recommended . Bought tennis ball for trip back and made a lot of difference. Then did yardwork , felt pain right buttock pain when getting up from ground. Iced after yardwork. Had to sleep in chair again, couldn't get comfortable in bed. Last night calf again. Right now intensity level 2/ 10 PT-OP-F Manual Assessment Start: 11/26/22 08:27 Freq: Status: Active Protocol: Document 11/27/22 08:18 [facility] (Rec: 11/28/22 16:39 [facility] [id number]) Manual Assessments Soft Tissue Assessment Soft Tissue Mobility Assessment TTP right piriformis, glut med , IT band PT-OP-G Mobility & Gait Start: 11/26/22 08:27 Freq: Status: Active Protocol: Document 11/27/22 08:18 [facility] (Rec: 11/28/22 16:39 [facility] [id number]) OP Gait Assessment Gait Gait Assistance Required: Independent Assistive Devices Assistive Device None Gait Deviations General Gait Pattern Antalgic Factors Limiting Gait Function Factors Limiting Gait Function Pain PT-OP-H Neuro Start: 11/26/22 08:27 Freq: Status: Active Protocol: Document 11/27/22 08:18 [facility] (Rec: 11/28/22 16:39 [facility] [id number]) Sensation Evaluation Gross Sensation Gross Sensation WNL PT-OP-J Posture/Palpation/Skin Start: 11/26/22 08:27 Freq: Status: Active Protocol: Document 11/27/22 08:18 [facility] (Rec: 11/28/22 16:39 [facility] [id number]) Posture Evaluation Position Standing Head/C-Spine Posture Forward Head T-Spine Posture Increased Kyphosis L-Spine Posture Decreased Lordosis Shoulder Posture (L) Rounded,(R) Rounded Scapula Posture (L) Protracted,(R) Protracted Pelvis Posture Posterior Tilted Weight Distribution Weight Shifted Posterior Hip Posture (R) Externally Rotated Palpation Assessment Location glut med Palpation Location R Palpation Findings Soft Tissue Tightness, Tenderness IT band Palpation Location R Palpation Findings Soft Tissue Tightness, Tenderness piriformis Palpation Location R Palpation Findings Soft Tissue Tightness, Tenderness PT-OP-K Range of Motion Start: 11/26/22 08:27 Freq: Status: Active Protocol: Document 11/27/22 08:18 [facility] (Rec: 11/28/22 16:39 [facility] [id number]) Lumbar Spine Range of Motion Lumbar Spine Active Flexion 30 Extension 10 Rotation Left 45 Rotation Right 45 Lateral Flexion Left 35 Lateral Flexion Right 30 ROM Limitations Soft Tissue Tightness,Pain Hip Goniometric Range of Motion Hip Right Flexion w/Knee Flexed 90 Straight Leg Raise 35 Extension 0 Abduction 35 Internal Rotation 10 External Rotation 40 Left Flexion w/Knee Flexed 90 Straight Leg Raise 40 Extension 0 Abduction 25 Internal Rotation 10 External Rotation 30 PT-OP-L Special Tests Start: 11/26/22 08:27 Freq: Status: Active Protocol: Document 11/27/22 08:18 [facility] (Rec: 11/28/22 16:39 [facility] [id number]) Special Tests Lumbar Spine Special Tests Vertical Spine Loading Test Results negative Slump Test Results negative PT-OP-M Strength Start: 11/26/22 08:27 Freq: Status: Active Protocol: Document 11/27/22 08:18 [facility] (Rec: 11/28/22 16:39 [facility] [id number]) Hip Strength Hip Manual Muscle Testing Right Flexion (L2) 4 Good Extension (S1) 3+ Fair+ Abduction 4- Good- External Rotation 3+ Fair+ Internal Rotation 4- Good- Left Flexion (L2) 4 Good Extension (S1) 4- Good- Abduction 4- Good- External Rotation 4- Good- Internal Rotation 4 Good Knee Strength Knee Manual Muscle Testing antonio Flexion (S2) 5 Normal Extension (L3) 5 Normal Ankle/Foot Strength Ankle and Foot Manual Muscle Testing antonio Dorsiflexion (L4) 5 Normal Plantarflexion (S1) 5 Normal PT-OP-Q Treatments Start: 11/26/22 08:27 Freq: Status: Active Protocol: Document 01/22/23 15:01 [facility] (Rec: 01/22/23 16:09 [facility] [id number]) Cardio Equipment Recumbent Stepper (Sci-Fit) Duration (Minutes) 10 Resistance 2.5 Seat Position 12 Other LE's only, cues for LE alignment Therapeutic Exercises Supine Exercises Raymon stretch Reps/Minutes 2x30 Comments end of table, manual assist for LE alignment Prone Exercises prone press up Reps/Minutes 3x10 Sitting Exercises self traction Reps/Minutes 3x10 Comments chair with arms Therapeutic Activity Therapeutic Activity floor transfers Reps/Minutes 2x Manual Therapy Treatment Soft Tissue Mobilization l/s Body Location right Mobilization Type Strumming,Sustained Pressure Self-Care/Home Management Treatment Education Other Education self lumbar traction in chair PT-OP-R Modalities Start: 11/26/22 08:27 Freq: Status: Active Protocol: Document 01/22/23 15:01 [facility] (Rec: 01/22/23 16:09 [facility] [id number]) Hot Pack/Cold Pack Treatment Hot Pack Location l/s, bucckock Patient Position Supine Treatment Duration (minutes) 15 Spinal Traction Traction Treatment Lumbar traction Traction Treatment Comment Traction unit not working PT-OP-T Assessment and Plan Start: 11/26/22 08:27 Freq: Status: Active Protocol: Document 01/22/23 15:01 [facility] (Rec: 01/22/23 16:09 [facility] [id number]) Physical Therapy Assessment Goals Three Impairment sleep limited by pain Skilled Nursing Goal (LTG) Patient able to resume normal sleep pattern without being woken due to pain 01/10/23: good goal progress. Has slept 2 nights in bed with good tolerance. LTG Duration 01/27/23 Two Impairment weakness and decreased flexibility hips antonio right greater than left Short Term Goal (STG) patient to be instructed in HEP to address impairments 01/03/23: goal met, though ongoing progression and modification STG Duration met Skilled Nursing Goal (LTG) Patient to be independent and compliant with HEP and demonstrate ROM WNL and strength 01/05 antonio hips LTG Duration 01/28/23 One Impairment pain right buttock and lateral calf Impairment 5-8/10 on pain scale Short Term Goal (STG) decrease pain to no greater than 5/10 01/03/25: good goal progress, goal met. STG Duration goal met Skilled Nursing Goal (LTG) decrease pain to no greater than 2/10 to allow patient to resume all prior activities LTG Duration 01/27/23 Assessment Summary Assessment Intended to do Velez mechanical traction today but machine not working, moved to manual treatment l/s withpatient reporting feeling symptoms into right buttock and lateral right leg with DTM right paraspinals; not pain, but some tingling. Feel seated traction and prone press up will be helpful for patient as appears at least some symptoms from l/s. Patient demonstrates good understanding for rationale. PT also recommends aquatic exercise for patient for decompression of spine in aquatic environment. Physical Therapy Plan Frequency and Duration Frequency of Treatment 2x/Week Duration of treatment (weeks) 8 Plan of Care Start Date 11/27/22 Plan of Care End Date 01/26/23 Therapeutic Interventions Therapeutic Interventions Balance Training,Coordination Training,Gait Training,Home Exercise Program,Joint Mobilizations,Manual Therapy, Neuromuscular Re-education, Patient/Caregiver Education, Self-Care/Home Management, Sensory Integration,Soft Tissue Mobilization,Taping, Therapeutic Activities, Therapeutic Exercises Modalities Hot Packs,Traction- Mechanical ,Ultrasound Next Visit Focus/Plan Next Note Type Treatment Note Next Visit Plan REview HEP, added ex/self- traction. Discuss options of patient purchasing [employer] Home Traction Unit, trial aquatic exercise. Plan is to discharge from PT next session to home program and self- management.
--- NOTE | 2023-01-24 15:53 | PT.OTN ---
Current Diagnoses Pain in right hip (01/24/23) Difficulty in walking, not elsewhere classified (01/24/23) Weakness (01/24/23) Physical Therapy Treatment Note PT-OP-A Visit Information Start: 11/26/22 08:27 Freq: Status: Active Protocol: Document 01/24/23 14:46 [facility] (Rec: 01/24/23 15:53 [facility] [id number]) Out-Patient Physical Therapy Visit Information Visit Information Visit Type Treatment Note Visit Start Time 15:00 Total Visit Minutes 55 Visit Number 14 PT-OP-B Current Condition Start: 11/26/22 08:27 Freq: Status: Active Protocol: Document 11/29/22 10:30 [facility] (Rec: 11/29/22 11:21 [facility] [id number]) Current Condition History of Current Condition Onset Date 1 month Current Complaints right hip pain History of Current Condition History antonio JOY. No issues with left. Right hip aching with driving in the past but always went away. Now really flared up and won't go away. Initially could get relief standing up, now no relief, can't sleep in bed due to right hip and calf pain. Now has developed LE edema due to sleeping in recliner left greater than right. Normal sleep position is laying on right side or left side. LOts of Ibuprofen, Acetaminophen. Right big toe N/T but mostly ache not tingle. Crossing right LE over left in sitting at times gives a little relief . Historically walked 4-6 miles per day, currently unable to walk. [address] on way up to [facility], lots of sitting with travel, states he stretched wrong foot up on bench had sharp pain and worsened pain. Nights are the worst, poor sleep Prior Treatments and Tests x-rays negative. 1 chiropractic appointment, not helpful. Lots of time on ice and heat Treatment Goals Patient/Caregiver Goals eliminate pain, resume prior level of function PT-OP-C Subjective Start: 11/26/22 08:27 Freq: Status: Active Protocol: Document 01/24/23 14:46 [facility] (Rec: 01/24/23 15:53 [facility] [id number]) OP-PT Subjective Patient Comments Patient Comments Did well after last session, flared up again driving today. Standing up was enough to decrease flare again. Started in bed last night PT-OP-F Manual Assessment Start: 11/26/22 08:27 Freq: Status: Active Protocol: Document 11/27/22 08:18 [facility] (Rec: 11/28/22 16:39 [facility] [id number]) Manual Assessments Soft Tissue Assessment Soft Tissue Mobility Assessment TTP right piriformis, glut med , IT band PT-OP-G Mobility & Gait Start: 11/26/22 08:27 Freq: Status: Active Protocol: Document 11/27/22 08:18 [facility] (Rec: 11/28/22 16:39 [facility] [id number]) OP Gait Assessment Gait Gait Assistance Required: Independent Assistive Devices Assistive Device None Gait Deviations General Gait Pattern Antalgic Factors Limiting Gait Function Factors Limiting Gait Function Pain PT-OP-H Neuro Start: 11/26/22 08:27 Freq: Status: Active Protocol: Document 11/27/22 08:18 [facility] (Rec: 11/28/22 16:39 [facility] [id number]) Sensation Evaluation Gross Sensation Gross Sensation WNL PT-OP-J Posture/Palpation/Skin Start: 11/26/22 08:27 Freq: Status: Active Protocol: Document 11/27/22 08:18 [facility] (Rec: 11/28/22 16:39 [facility] [id number]) Posture Evaluation Position Standing Head/C-Spine Posture Forward Head T-Spine Posture Increased Kyphosis L-Spine Posture Decreased Lordosis Shoulder Posture (L) Rounded,(R) Rounded Scapula Posture (L) Protracted,(R) Protracted Pelvis Posture Posterior Tilted Weight Distribution Weight Shifted Posterior Hip Posture (R) Externally Rotated Palpation Assessment Location glut med Palpation Location R Palpation Findings Soft Tissue Tightness, Tenderness IT band Palpation Location R Palpation Findings Soft Tissue Tightness, Tenderness piriformis Palpation Location R Palpation Findings Soft Tissue Tightness, Tenderness PT-OP-K Range of Motion Start: 11/26/22 08:27 Freq: Status: Active Protocol: Document 11/27/22 08:18 [facility] (Rec: 11/28/22 16:39 [facility] [id number]) Lumbar Spine Range of Motion Lumbar Spine Active Flexion 30 Extension 10 Rotation Left 45 Rotation Right 45 Lateral Flexion Left 35 Lateral Flexion Right 30 ROM Limitations Soft Tissue Tightness,Pain Hip Goniometric Range of Motion Hip Right Flexion w/Knee Flexed 90 Straight Leg Raise 35 Extension 0 Abduction 35 Internal Rotation 10 External Rotation 40 Left Flexion w/Knee Flexed 90 Straight Leg Raise 40 Extension 0 Abduction 25 Internal Rotation 10 External Rotation 30 PT-OP-L Special Tests Start: 11/26/22 08:27 Freq: Status: Active Protocol: Document 11/27/22 08:18 [facility] (Rec: 11/28/22 16:39 [facility] [id number]) Special Tests Lumbar Spine Special Tests Vertical Spine Loading Test Results negative Slump Test Results negative PT-OP-M Strength Start: 11/26/22 08:27 Freq: Status: Active Protocol: Document 11/27/22 08:18 [facility] (Rec: 11/28/22 16:39 [facility] [id number]) Hip Strength Hip Manual Muscle Testing Right Flexion (L2) 4 Good Extension (S1) 3+ Fair+ Abduction 4- Good- External Rotation 3+ Fair+ Internal Rotation 4- Good- Left Flexion (L2) 4 Good Extension (S1) 4- Good- Abduction 4- Good- External Rotation 4- Good- Internal Rotation 4 Good Knee Strength Knee Manual Muscle Testing antonio Flexion (S2) 5 Normal Extension (L3) 5 Normal Ankle/Foot Strength Ankle and Foot Manual Muscle Testing antonio Dorsiflexion (L4) 5 Normal Plantarflexion (S1) 5 Normal PT-OP-Q Treatments Start: 11/26/22 08:27 Freq: Status: Active Protocol: Document 01/24/23 14:46 [facility] (Rec: 01/24/23 15:53 [facility] [id number]) Cardio Equipment Recumbent Stepper (Sci-Fit) Duration (Minutes) 10 Resistance 2.5 Seat Position 12 Other LE's only, cues for LE alignment Therapeutic Exercises Supine Exercises Raymon stretch Reps/Minutes 2x30 Comments end of table, manual assist for LE alignment Prone Exercises prone press up Reps/Minutes 3x10 Sitting Exercises self traction Reps/Minutes 3x10 Comments chair with arms Manual Therapy Treatment Soft Tissue Mobilization l/s Body Location right Mobilization Type Strumming,Sustained Pressure Intensity/Depth Moderate Body Position Prone piriformis Body Location right Mobilization Type Myofascial Release,Strumming, Sustained Pressure Intensity/Depth Moderate Body Position Prone Self-Care/Home Management Treatment Education Other Education use of tennis ball in pillow case; buttock, l/s PT-OP-R Modalities Start: 11/26/22 08:27 Freq: Status: Active Protocol: Document 01/24/23 14:46 [facility] (Rec: 01/24/23 15:53 [facility] [id number]) Hot Pack/Cold Pack Treatment Hot Pack Location l/s, buttock R Patient Position Sidelying Treatment Duration (minutes) 15 PT-OP-T Assessment and Plan Start: 11/26/22 08:27 Freq: Status: Active Protocol: Document 01/24/23 14:46 [facility] (Rec: 01/24/23 15:53 [facility] [id number]) Physical Therapy Assessment Goals Three Impairment sleep limited by pain Assistant Merchandiser Goal (LTG) Patient able to resume normal sleep pattern without being woken due to pain 01/10/23: good goal progress. Has slept 2 nights in bed with good tolerance. 01/24/23: mostly met LTG Duration 01/27/23 Two Impairment weakness and decreased flexibility hips antonio right greater than left Short Term Goal (STG) patient to be instructed in HEP to address impairments 01/03/23: goal met, though ongoing progression and modification STG Duration met Jail Goal (LTG) Patient to be independent and compliant with HEP and demonstrate ROM WNL and strength 01/05 antonio hips 01/24/23: good goal progress, should continue to progress with HEP, weakest hip ext. LTG Duration 01/28/23 One Impairment pain right buttock and lateral calf Impairment 5-8/10 on pain scale Short Term Goal (STG) decrease pain to no greater than 5/10 01/03/25: good goal progress, goal met. STG Duration goal met Assistant Merchandiser Goal (LTG) decrease pain to no greater than 2/10 to allow patient to resume all prior activities 01/24/23: pain varies 0-5/10 over past week. LTG Duration 01/27/23 Assessment Summary Assessment Patient has made good progress with PT, should continue to progress with HEP, self- massage and self traction, consider obtaining [employer] home traction unit, try aquatic exercise/PT (given card for therapist). At this time patient ready for discharge from PT Physical Therapy Plan Discharge Physical Therapy Discharge Comments Good goal progress. Patient to continue HEP, self massage, self-traction in chair, consider obtaining [employer] [facility] Traction Unit, try aquatic exercise/PT.
== END 2023-01-26 10:08 | disposition home or self-care (01) ==
LOC: PHYS 15:00
PROVIDERS: Family Provider Family Medicine; PCP Family Medicine; Referring Provider Family Medicine; Visit Provider Family Medicine
DX: M25.551 Pain in right hip (principal); R53.1 Weakness; R26.2 Difficulty in walking, not elsewhere classified
CPT/HCPCS: 97010; 97012; 97110; 97116; 97140; 97162; 97530; 97535

== ENCOUNTER → 2023-03-05 16:52 | Outpatient (CLI) | payer MEDICARE, SELFPAY ==
--- NOTE | 2023-03-05 16:55 | DI.RAD.S_ITS ---
PROCEDURE: XR HAND RT MIN 3V INDICATIONS: Right hand index finger injury TECHNIQUE: Three views of the hand acquired. COMPARISON: None. FINDINGS: Bones: Irregular osseous protuberance is seen at the dorsum of the hand on lateral view that is not well evaluated on dish in the views due to overlapping osseous structures. This may represent a carpal boss versus the sequela of recent or remote trauma. Carpal bones are normally aligned. No suspicious bony lesions. [id number] degenerative changes of the 1st carpometacarpal joint and triscaphe joint. Soft tissues: No suspicious soft tissue calcifications. Soft tissue edema is seen at the dorsum of the hand at the level of the carpometacarpal joints. IMPRESSION: Irregular osseous protuberance at the dorsal aspect of the hand at the level of the carpometacarpal joints seen on lateral view only is suspicious for carpal boss versus the sequela of prior trauma of uncertain age. Overlying soft tissue prominence is noted. MRI or CT could be performed for further evaluation if indicated clinically. Approved by: Lalit Paredes M.D. on 03/05/2023 at 17:30
== END ==
PROVIDERS: Family Provider Family Medicine; PCP Family Medicine; Referring Provider Registered Nurse; Visit Provider Registered Nurse
DX: S69.91XA Unspecified injury of right wrist, hand and finger(s), initial encounter (principal)
CPT/HCPCS: 73130

== ENCOUNTER → 2023-03-21 09:19 | Outpatient (CLI) | payer MEDICARE, SELFPAY ==
[2023-03-21 11:40] LABS: Alanine Aminotransferase 35 IU/L (<50); Albumin Globulin Ratio 1.5 (1.0-2.8); Alkaline Phosphatase 53 U/L (38-126); Aspartate Aminotransferase 32 IU/L (17-59); BUN Creatinine Ratio 21.2 (6-22); Blood Urea Nitrogen 22 mg/dL (9-20); Calcium 9.1 mg/dL (8.4-10.2); Carbon Dioxide 30 mmol/L (22-32); Chloride 103 mmol/L (98-107); Estimated Glomerular Filt Rate > 60 mL/min (>60); Globulin 2.7 g/dL (1.7-4.1); Glucose 93 mg/dL (80-110); HEMOLYSIS < 15 (0-50); Potassium 4.1 mmol/L (3.4-5.1); Sodium 139 mmol/L (137-145); Total Protein 6.7 g/dL (6.3-8.2)
[2023-03-21 12:27] LABS: TSH w/ Reflex to FT4 1.35 uIU/mL (0.47-4.68)
== END ==
PROVIDERS: Family Provider Family Medicine; PCP Family Medicine; Referring Provider Family Medicine; Visit Provider Family Medicine
DX: E03.9 Hypothyroidism, unspecified (principal); N40.1 Benign prostatic hyperplasia with lower urinary tract symptoms; R39.12 Poor urinary stream
CPT/HCPCS: 36415; 80053; 84443

== ENCOUNTER → 2023-04-19 15:08 | Outpatient (CLI) | payer MEDICARE, SELFPAY ==
[2023-04-19 15:47] LABS: Hematocrit 40.2 % (41-53); Hemoglobin 13.5 g/dL (13.5-17.5); Mean Corpuscular HGB Conc 33.6 % (30-36); Mean Corpuscular Hemoglobin 29.6 PG (26-34); Mean Corpuscular Volume 88.1 fL (80-100); Platelet Count 188 X10^3/uL (150-400); Red Blood Cell Count 4.56 X10^6/uL (4.5-5.9); Red Cell Distribution Width 13.6 % (11.6-14.8); White Blood Cell Count 6.3 X10^3/uL (4.5-11.0)
[2023-04-19 17:42] LABS: Vitamin B12 574 pg/mL (239-931)
== END ==
PROVIDERS: Family Provider Family Medicine; PCP Family Medicine; Referring Provider Physician Assistant; Visit Provider Physician Assistant
DX: K13.0 Diseases of lips (principal)
CPT/HCPCS: 36415; 82607; 85027

== ENCOUNTER → 2023-08-01 12:19 | Outpatient (CLI) | payer MEDICARE, SELFPAY ==
--- NOTE | 2023-08-01 12:21 | DI.RAD.S_ITS ---
PROCEDURE: XR RIBS BI MIN 4V W CXR1V INDICATIONS: Rib pain TECHNIQUE: 2 views of the bilateral ribs were acquired, along with a single view chest. COMPARISON: None. FINDINGS: Surgical changes and devices: None. Bones and chest wall: No acute fractures or dislocations. Deformity of right lateral 3rd, 4th, and 5th rib arcs, probably healing fractures. No suspicious bony lesions. Overlying soft tissues appear unremarkable. Lungs and pleura: No pleural effusions or pneumothorax. Lungs appear clear. Mediastinum: Mediastinal contours appear normal. Heart size is normal. IMPRESSION: 1. No definite acute rib fracture. 2. No suspicious bone lesion. 3. Probable remote right upper lateral rib fractures. Correlate with point tenderness. Dictated by: Ally Barboza M.D. on 08/01/2023 at 17:36 Approved by: Ally Barboza M.D. on 08/01/2023 at 17:38
== END ==
PROVIDERS: Family Provider Family Medicine; PCP Family Medicine; Referring Provider Nurse Practitioner Family; Visit Provider Nurse Practitioner Family
DX: R07.81 Pleurodynia (principal)
CPT/HCPCS: 71111

== ENCOUNTER → 2023-08-28 12:14 | Outpatient (CLI) | payer MEDICARE, SELFPAY ==
--- NOTE | 2023-08-28 | DI.US.S_ITS ---
PROCEDURE: US ABDOMEN LIMITED INDICATIONS: SUBJECTIVE MASS LEFT RIB CAGE TECHNIQUE: Real-time focused scanning was performed of the abdomen, with image documentation. COMPARISON: [facility], CR, XR RIBS BI MIN 4V W CXR1V, 08/01/2023, 12:36. FINDINGS: No mass, fluid collection or lymphadenopathy seen. IMPRESSION: No sonographic abnormality. Dictated by: Regulo GARRETT Interpreted: Jonathan Gaming MD on 08/28/2023 at 13:19 Transcribed by: SALVATORE on 08/28/2023 at 13:19 Approved by: Jonathan Gaming M.D. on 08/28/2023 at 17:06
== END ==
PROVIDERS: Family Provider Family Medicine; PCP Family Medicine; Referring Provider Physician Assistant; Visit Provider Physician Assistant
DX: R22.2 Localized swelling, mass and lump, trunk (principal)
CPT/HCPCS: 76705

== ENCOUNTER → 2023-10-11 09:58 | Outpatient (CLI) | payer MEDICARE, SELFPAY ==
[2023-10-14 05:11] LABS: PSA, Total 3.4 ng/mL (0.0-4.0)
== END ==
PROVIDERS: Family Provider Family Medicine; PCP Family Medicine; Referring Provider Urology; Visit Provider Urology
DX: R97.20 Elevated prostate specific antigen [PSA] (principal); Z80.42 Family history of malignant neoplasm of prostate
CPT/HCPCS: 36415; 84153; 84154

== ENCOUNTER → 2023-10-22 10:19 | Outpatient (CLI) | payer MEDICARE, SELFPAY ==
--- NOTE | 2023-10-22 10:19 | DI.CT.S_ITS ---
PROCEDURE: CT LUNG LOW DOSE SCREENING INDICATIONS: smoking hx, lung cancer screening TECHNIQUE: Noncontrast 2.0-2.5 mm thick sections acquired from the pulmonary apices to the posterior costophrenic angles. 7 mm thick axial MIP, and 5 mm coronal and sagittal reformats were then acquired. For radiation dose reduction, the following was used: automated exposure control, adjustment of mA and/or kV according to patient size. COMPARISON: None. FINDINGS: Image quality: Diagnostic. Lower Neck: No enlarged lymph nodes. Thyroid: Not well seen, possibly atrophic. Axillae: No enlarged lymph nodes. Chest Wall: Unremarkable. Bones: No acute fractures. No aggressive appearing lytic or blastic osseous lesions. [id number] multilevel degenerative changes of the spine. Lungs and Pleura: No pneumothorax or pleural effusions. Right upper lobe subpleural solid pulmonary nodule measuring 5 3 mm (3/120). Right lower lobe subpleural solid pulmonary nodule measuring 4 mm (3/260). Left fissure solid pulmonary nodule versus lymph node measuring 2 mm (3/170). Left lower lobe solid pulmonary nodule measuring 3 mm (3/262). Left upper lobe subcentimeter calcified granuloma. Left fissure solid Heart: Heart size is normal. No pericardial effusion. Moderate to severe LAD coronary vessel calcification. Thoracic Vessels: The aorta and pulmonary arteries demonstrate normal size. Minimal calcification of the thoracic aorta. Mediastinum and Katie: No enlarged lymph nodes. Esophagus: No wall thickening. No hiatal hernia. Upper Abdomen: Partially visualized colonic diverticulosis, without diverticulitis. IMPRESSION: 1. A few scattered solid pulmonary nodules measuring up to 4 mm. LUNG-RADS 2; continued annual screening, if eligible. 2. Moderate to severe LAD coronary vessel calcification. 3. Partially visualized colonic diverticulosis, without diverticulitis. Dictated by: Desirae Navarro M.D. on 10/22/2023 at 15:16 Approved by: Desirae Navarro M.D. on 10/22/2023 at 15:21
== END ==
LOC: CT 10:19
PROVIDERS: Family Provider Family Medicine; PCP Family Medicine; Referring Provider Family Medicine; Visit Provider Family Medicine
DX: F17.210 Nicotine dependence, cigarettes, uncomplicated (principal); Z12.2 Encounter for screening for malignant neoplasm of respiratory organs; R91.8 Other nonspecific abnormal finding of lung field; I25.10 Atherosclerotic heart disease of native coronary artery without angina pectoris; K57.90 Diverticulosis of intestine, part unspecified, without perforation or abscess without bleeding
CPT/HCPCS: 71271

== ENCOUNTER 2023-12-20 18:26 | Emergency (ER) | payer MEDICARE, SELFPAY ==
[2023-12-20 18:30] VITALS: BP 144/75; PULSE 65; RESP 18; TEMP 37.1; O2SAT 98; BMI 28.5
--- NOTE | 2023-12-20 18:42 | DI.CT.S_ITS ---
PROCEDURE: CT HEAD/BRAIN WO CON INDICATIONS: fall/hit head/headache TECHNIQUE: Noncontrast 4.5 mm thick angled axial sections acquired from the foramen magnum to the vertex, with coronal and sagittal reformats. For radiation dose reduction, the following was used: automated exposure control, adjustment of mA and/or kV according to patient size. COMPARISON: None. FINDINGS: Image quality: Diagnostic. CSF spaces: Basal cisterns are patent. No extra-axial fluid collections. The ventricles are symmetric in size and shape. Brain: No acute intracranial hemorrhage or mass effect. There is cerebral volume loss for age, with resultant ventricular and sulcal prominence. There are periventricular and deep white matter chronic small vessel ischemic changes. There is intracranial internal carotid artery atherosclerosis. Skull and face: Calvarium and visualized facial bones appear intact, without suspicious lesions. Surgical clips are seen projecting over the right face. Sinuses: Visualized sinuses and mastoids are clear. IMPRESSION: No acute intracranial pathology. Approved by: Lalit Paredes M.D. on 12/20/2023 at 19:16
--- NOTE | 2023-12-20 18:42 | DI.CT.S_ITS ---
PROCEDURE: CT CERVICAL SPINE WO CON INDICATIONS: fall/hit head/headache TECHNIQUE: Noncontrast 3 mm thick sections acquired from the skull base to the T4 level. Sagittal and coronal reformats were then constructed. For radiation dose reduction, the following was used: automated exposure control, adjustment of mA and/or kV according to patient size. COMPARISON: None. FINDINGS: Image quality: Excellent. Bones: No acute fractures or dislocations. Visualized superior ribs are intact. Mild grade 1 anterolisthesis at C4-5 and C5-6. Multilevel disc space narrowing degenerative endplate changes and multilevel uncovertebral joint and facet hypertrophy are present. Soft tissues: Prevertebral soft tissues are normal in thickness. No paravertebral hematomas. No apical pneumothoraces. IMPRESSION: No acute displaced fracture or traumatic subluxation. Multilevel spondylosis. Approved by: Lalit Paredes M.D. on 12/20/2023 at 19:18
[2023-12-20] MEDS: TET,DIPH,PERTUSS(ACELL),VAC/PF 0.5 ML SYRINGE IM (19:51)
--- NOTE | 2023-12-20 22:59 | ED_ITS ---
HPI - Head Injury General Chief complaint: Head Injury Stated complaint: fall, hit head, no blood thinners Time Seen by Provider: 12/20/23 20:40 Source: patient Mode of arrival: Ambulatory History of Present Illness HPI Narrative: 73-year-old gentleman with a history of hypothyroidism, hyperlipidemia, depression was working in his yd yesterday, squatting down by his kash morton lost his balance fell backward and hit the occiput of his head on a lawn chair. There was no loss of consciousness. There was a minor abrasion and minor bleeding. He did not think anything of this at the time. This afternoon as he continued to have a low-grade headache he felt that he might benefit for additional evaluation and presents to the emergency department for such. He has not complaining of any acute neurologic findings, he has not currently on anticoagulants. Notes some minor neck tenderness without radicular findings. There is no other musculoskeletal complaints or complaints related to his trauma yesterday. Related Data Home Medications Medication Instructions Recorded Confirmed geriatric piyeperz-gxzz-huen PO 03/29/23 10/23/23 Previous Rx's Medication Instructions Recorded alfuzosin 10 mg tablet,extended See Rx Instructions .Route 11/29/22 release 24 hr .COMPLEX #90 tabs tadalafil 20 mg tablet (Cialis) 20 mg PO DAILY PRN sexual activity 11/29/22 #7 tabs levothyroxine 125 mcg tablet See Rx Instructions .Route 08/14/23 .COMPLEX #90 tabs bupropion HCl 150 mg 24 hr tablet, 150 mg PO DAILY #90 tabs 10/05/23 extended release clotrimazole 1 % topical cream 1 applic topical BID #15 grams 11/29/23 rosuvastatin 10 mg tablet 10 mg PO DAILY #90 tabs 11/29/23 Allergies Allergy/AdvReac Type Severity Reaction Status Date / Time Sulfa (Sulfonamide Allergy Intermediate Swelling, Verified 11/29/23 11:22 Antibiotics) hives, rash monosodium glutamate Allergy Hives Verified 11/29/23 11:22 strawberry Allergy Hives Verified 11/29/23 11:22 Review of Systems Review of Systems Narrative: Pertinent positive and negative findings as per HPI Patient History Medical History (Updated 12/20/23 @ 23:01 by Elsa Sheridan MD) Pulmonary nodules Lipoma of axilla Groin rash Smoking greater than 25 pack years Medicare annual wellness visit, subsequent Ganglion cyst of tendon sheath of right hand Hand pain, right Somatic dysfunction of lower extremity Right leg pain Hx of colonic polyp Family history of prostate cancer Lower urinary tract symptoms Depression Atypical nevi Actinic keratoses Chronic 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 Erectile dysfunction Hypothyroidism (acquired) BPH (benign prostatic hyperplasia) Surgical History H/O vasectomy H/O bilateral hip replacements Family History Father Cancer CAD (coronary atherosclerotic disease) Mother Hypertension Social History marital status: number of children: 3 household members: significant other Smoking Status: Former smoker alcohol intake: current substance use type: does not use Smoking Status: Former smoker alcohol intake frequency: a few times a week Substance Use Type: does not use Exam Initial Vital Signs Initial Vital Signs: Vital Signs Temperature 98.7 F 12/20/23 18:30 Pulse Rate 65 12/20/23 18:30 Respiratory Rate 18 12/20/23 18:30 Blood Pressure 144/75 H 12/20/23 18:30 Pulse Oximetry 98 12/20/23 18:30 Oxygen Delivery Method Room Air 12/20/23 18:30 General: Healthy appearing, in no acute distress. Able to give a complete and coherent history. Well-nourished well-developed HEENT: Moist mucous membranes, normal sclera with reactive pupils, he has a 2 x 2 cm contusion to the occiput with a minor abrasion. There is no bleeding. Neck: Some minor tenderness in the occipital insertion and some minor paraspi nous muscle spasm. Respiratory: Full and symmetrical air movement Neurologic: Grossly neurologically intact with no obvious asymmetries or abnormalities Extremities: No trauma, well perfused Psych: Cooperative, appropriate insight and affect Course Orders Ordered: ED Orders 12/20/23 18:42 CT cervical spine wo con Stat CT head/brain wo con Stat Discontinued Medications Diphtheria/Tetanus/Acell Pertussis (Tet,Diph,Pertuss(Acell),Vac/Pf 0.5 Ml Syringe) 0.5 ml IM .ONCE ONE Stop: 12/20/23 18:43 Last Admin: 12/20/23 19:51 Dose: 0.5 ml Documented By: JAXON Vital Signs Vital signs: Vital Signs - 8 hr 12/20/23 18:30 Temperature 98.7 F Pulse Rate 65 Respiratory Rate 18 Blood Pressure 144/75 H Pulse Oximetry 98 Oxygen Delivery Method Room Air MDM - Head Injury MDM Narrative Medical decision making narrative: CC: Squatting down, fell backward hit the occiput of his head on a chair. Event was 24 hours ago Complicating co-morbidities: Not on blood thinners Data collected from: patient Differential considered: Concussion, intracranial bleeding, cervical spine injury Exam documented above, pertinent findings include: Contusion to the occiput, minor abrasion that does not need any repair. He is neurologically intact, minor headache only. Imaging studies independently reviewed: CT scan of the head and the cervical spine are both reassuring and unremarkable Discussion: 73-year-old gentleman with fall 24 hours ago. Contusion with the acute neck strain causing low-grade headache without any evidence of cervical spine injury or intracranial hemorrhage. He is using the combination ibuprofen Tylenol product with success. There was no sign of any additional damage or injury and no indication for additional workup, advanced imaging or hospitalization. Questions are answered and he is safe for discharge Discharge Plan Departure Patient Disposition: Home Clinical Impression: Fall Qualifiers: Encounter type: initial encounter Qualified Code(s): W19.XXXA - Unspecified fall, initial encounter Contusion of occipital region of scalp Qualifiers: Encounter type: initial encounter Qualified Code(s): S00.03XA - Contusion of scalp, initial encounter Acute strain of neck muscle Qualifiers: Encounter type: initial encounter Qualified Code(s): S16.1XXA - Strain of muscle, fascia and tendon at neck level, initial encounter Instructions: DI for Neck Sprain Activity Restrictions/Additional Instructions: Thank you for coming in today The CT scan of your head and your cervical spine were both unremarkable. The contusion that you have to the back of your head does have a small abrasion over it. You do not need stitches at this time. This will continue to improve in the next week or so You can continue to use the ibuprofen/Tylenol combination pill. I would not be surprised if you continue to have low-grade headaches for 2 or 3 more days. If you find that you are getting worse or develop any new symptoms, please feel free to return to the emergency department for further evaluation. Prescriptions: No Action levothyroxine 125 mcg tablet See Rx Instructions .ROUTE .COMPLEX Qty: 90 1RF Dose Instruction: TAKE ONE TABLET BY MOUTH ONE TIME DAILY Rx Instructions: TAKE ONE TABLET BY MOUTH ONE TIME DAILY bupropion HCl 150 mg tablet extended release 24 hr 150 mg PO DAILY Qty: 90 1RF geriatric lqgquyqh-doyh-drwf PO rosuvastatin 10 mg tablet 10 mg PO DAILY Qty: 90 3RF clotrimazole 1 % cream 1 applic topical BID Qty: 15 0RF alfuzosin 10 mg tablet extended release 24 hr See Rx Instructions .ROUTE .COMPLEX Qty: 90 3RF Dose Instruction: TAKE ONE TABLET BY MOUTH ONE TIME DAILY AFTER THE SAME MEAL EACH DAY Rx Instructions: TAKE ONE TABLET BY MOUTH ONE TIME DAILY AFTER THE SAME MEAL EACH DAY tadalafil [Cialis] 20 mg tablet 20 mg PO DAILY PRN (Reason: sexual activity) Qty: 7 12RF Rx Instructions: administer approximately 30min before sexual activity; do not use more than 1 dose per 24hrs Referrals: Junior Roger DO [Primary Care Provider] - Stand Alone Forms: Patient Portal/API
[2023-12-20 23:07] VITALS: BP 140/73; PULSE 62; RESP 18; O2SAT 100
== END 2023-12-20 23:08 | disposition home or self-care (01) ==
PROVIDERS: Emergency Provider Emergency Medicine; Family Provider Family Medicine; PCP Family Medicine
DX: S00.03XA Contusion of scalp, initial encounter (principal); S16.1XXA Strain of muscle, fascia and tendon at neck level, initial encounter; W18.30XA Fall on same level, unspecified, initial encounter; Z23 Encounter for immunization
CPT/HCPCS: 70450; 72125; 90471; 99283; 90715

== ENCOUNTER → 2024-08-22 09:04 | Outpatient (CLI) | payer MEDICARE, SELFPAY ==
[2024-08-22 09:44] LABS: Hematocrit 42.7 % (41-53); Mean Corpuscular HGB Conc 32.8 % (30-36); Mean Corpuscular Hemoglobin 29.5 PG (26-34); Mean Corpuscular Volume 89.9 fL (80-100); Platelet Count 180 X10^3/uL (150-400); Red Blood Cell Count 4.75 X10^6/uL (4.5-5.9); Red Cell Distribution Width 13.4 % (11.6-14.8); White Blood Cell Count 6.6 X10^3/uL (4.5-11.0)
[2024-08-22 10:01] LABS: Alanine Aminotransferase 32 IU/L (<50); Albumin 3.9 g/dL (3.5-5.0); Albumin Globulin Ratio 1.7 (1.0-2.8); Alkaline Phosphatase 58 U/L (38-126); Aspartate Aminotransferase 33 IU/L (17-59); Bilirubin Total 0.9 mg/dL (0.2-1.3); Blood Urea Nitrogen 20 mg/dL (9-20); Calcium 9.5 mg/dL (8.4-10.2); Carbon Dioxide 30 mmol/L (22-32); Chloride 106 mmol/L (98-107); Cholesterol 142 mg/dL (140-199); Estimated Glomerular Filt Rate > 60 mL/min (>60); Globulin 2.3 g/dL (1.7-4.1); Glucose 97 mg/dL (80-110); HDL Cholesterol 70 mg/dL (40-60); HEMOLYSIS < 15 (0-50); LDL Cholesterol Calculated 54 mg/dL (<100); Potassium 4.2 mmol/L (3.4-5.1); Sodium 140 mmol/L (137-145); Total Protein 6.2 g/dL (6.3-8.2); Triglycerides 90 mg/dL (35-150)
[2024-08-22 10:32] LABS: TSH w/ Reflex to FT4 1.43 uIU/mL (0.47-4.68)
== END ==
PROVIDERS: Family Provider Family Medicine; PCP Family Medicine; Referring Provider Family Medicine; Visit Provider Family Medicine
DX: E03.9 Hypothyroidism, unspecified (principal)
CPT/HCPCS: 36415; 80053; 80061; 84443; 85027

== ENCOUNTER → 2024-09-30 15:42 | Outpatient (CLI) | payer MEDICARE, SELFPAY ==
[2024-10-02 08:36] LABS: PSA Free % 32.2 % (.); PSA, Total 3.2 ng/mL (0.0-4.0)
== END ==
PROVIDERS: Family Provider Family Medicine; PCP Family Medicine; Referring Provider Urology; Visit Provider Urology
DX: Z12.5 Encounter for screening for malignant neoplasm of prostate (principal); Z80.42 Family history of malignant neoplasm of prostate
CPT/HCPCS: 36415; 84153; 84154

== ENCOUNTER 2025-01-15 11:56 | Day surgery (SDC) | payer MEDICARE, SELFPAY ==
--- NOTE | 2025-01-15 | PATH_ITS ---
[facility] Accession Number: [id number] No. of containers..01 Tissue . 01 Material submitted: . colon - COLON, ASCENDING POLYP . 01 Diagnosis: A: ASCENDING COLON, POLYPECTOMY: Tubular adenoma. [facility] 01/20/2025 1413 Local . 01 Electronically signed: . Samuel Christensen MD, Pathologist NPI- [id number] . 01 Gross description: . Received in formalin with two patient identifiers and ascending polyp, is a single fontanez soft tissue fragment admixed with debris aggregating to 0.6 x 0.3 x 0.2 cm. Filtered and submitted in cassette A1. ([id number]) /JONATHAN 01/17/2025 2155 Local . 01 Pathologist provided ICD-10: Z12.11 . 01 CPT . 452889 Specimen Comment: A courtesy copy of this report has been sent to [phone] Performed at: [address] [facility] [address], [place], [place] [id number] MD Leopoldo Falcon MD Phone: [phone]
[2025-01-15 12:13] VITALS: BP 131/72; PULSE 64; RESP 16; TEMP 36.2; O2SAT 100
[2025-01-15] MEDS: LACTATED RINGERS 1,000 ML 42 ML IV (12:26)
--- NOTE | 2025-01-15 13:00 | P.HP_ITS ---
History of Present Illness History of Present Illness Date Patient Seen: 01/15/25 Time Patient Seen: 13:00 Chief complaint: Colonoscopy w/poss bx Narrative: Joshua is a 74-year-old man who has had colon polyps. He has had a colonoscopy proximally every 5 years since he was in his 50s. His last colonoscopy attempt was last year but prep was incomplete so he was rescheduled. He has been told that he has a long colon before. [facility] Medical History (Updated 10/07/24 @ 16:30 by Junior Roger DO) Screening for prostate cancer Hyperlipidemia Pulmonary nodules Lipoma of axilla Groin rash Smoking greater than 25 pack years Medicare annual wellness visit, subsequent Ganglion cyst of tendon sheath of right hand Hand pain, right Somatic dysfunction of lower extremity Right leg pain Hx of colonic polyp Family history of prostate cancer Lower urinary tract symptoms Depression Atypical nevi Actinic keratoses Chronic 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 Erectile dysfunction Hypothyroidism (acquired) BPH (benign prostatic hyperplasia) Surgical History H/O vasectomy H/O bilateral hip replacements Family History Father Cancer CAD (coronary atherosclerotic disease) Mother Hypertension Social History marital status: number of children: 3 household members: significant other Smoking Status: Former smoker alcohol intake: current substance use type: does not use Meds Home Medications and Allergies Home Medications Medication Instructions Recorded Confirmed Type geriatric tynhbxiq-beiq-qxpw 1 tab PO DAILY 03/29/23 01/15/25 History clotrimazole 1 % topical cream 1 applic topical BID #15 grams 01/03/24 01/15/25 Rx levothyroxine 125 mcg tablet 125 mcg PO DAILY #90 tabs 10/21/24 01/15/25 Rx alfuzosin 10 mg tablet,extended See Rx Instructions .Route 10/28/24 01/15/25 Rx release 24 hr .COMPLEX #90 tabs tadalafil 20 mg tablet (Cialis) 20 mg PO DAILY PRN sexual activity 10/28/24 10/28/24 Rx #7 tabs rosuvastatin 10 mg tablet 10 mg PO DAILY #90 tabs 11/14/24 01/15/25 Rx bupropion HCl 150 mg 24 hr tablet, 150 mg PO DAILY #90 tabs 12/23/24 01/15/25 Rx extended release sodium,potassium,mag sulfates 17.5 See Rx Instructions PO .COMPLEX 12/31/24 Rx gram-3.13 gram-1.6 gram oral soln #354 mL (Suprep Bowel Prep Kit) Allergies Allergy/AdvReac Type Severity Reaction Status Date / Time Sulfa (Sulfonamide Allergy Intermediate Swelling, Verified 01/15/25 12:08 Antibiotics) hives, rash monosodium glutamate Allergy Hives Verified 01/15/25 12:08 Exam Vital Signs (past 8 hours): - 01/15/25 12:13 Temperature 97.2 F L Pulse Rate 64 Respiratory Rate 16 Blood Pressure 131/72 Pulse Oximetry 100 Oxygen Delivery Method Room Air Oxygen Delivery Method Room Air Const General: healthy appearing Assessment & Plan Assessment and plan (1) Hx of colonic polyp: Status: Acute Plan Colonoscopy for a history of colon polyps Time-Based Coding :: [TOTAL MINUTES] spent with patient and on the chart (including review of chart, obtaining history, exam, reviewing outside data, placing orders, documenting exam and treatment plan, and counseling patient) on [DATE]. PROFEE Greenhouse Specialist Document charge(s): No
--- NOTE | 2025-01-15 13:39 | PM.OP.COLON ---
Operative Date/Time/Diagnoses Date of procedure: 01/15/25 Time of procedure: 13:40 Pre-op diagnosis: History of polyps Post-op diagnosis: same Procedure & Clinicians Study performed: Colonoscopy Same procedure as scheduled: Yes Surgeon: Td Bergman Procedure Notes Procedure in detail: Surgeon: Td Bergman MD Anesthesia: Pauline Bradley MD Procedure: The patient was brought to the endoscopy suite, placed in left lateral decubitus position. The patient was connected to monitoring devices. A time-out was performed. Sedation was administered. Once the patient was adequately sedated, a digital rectal exam was performed and was normal. The scope was then inserted and advanced to the cecum where the appendiceal orifice was identified and photographed. The scope was then slowly withdrawn over greater than 6 minutes. The mucosa was thoroughly inspected. There was a 5 mm polyp in the ascending colon removed with a cold snare. There was extensive pandiverticulosis. The scope was retroflexed in the rectum. No other abnormalities were found. The scope was straightened and removed. The patient was awakened and brought to recovery. Scope withdrawal time: 14 minutes Sedation time: 25 minutes EBL: 2 mL Findings: 5 mm polyp in the ascending colon and pandiverticulosis Post-procedure Disposition: PACU
[2025-01-15 13:42] VITALS: BP 112/58; PULSE 54; RESP 10; TEMP 36.2; O2SAT 98
[2025-01-15 13:47] VITALS: BP 124/79; PULSE 58; RESP 16; O2SAT 97
[2025-01-15 13:52] VITALS: BP 131/76; PULSE 57; RESP 15; TEMP 36.2; O2SAT 98
[2025-01-15 14:02] VITALS: BP 127/76; PULSE 55; RESP 16; TEMP 36.2; O2SAT 98
== END 2025-01-15 14:20 | disposition home or self-care (01) ==
PROVIDERS: Family Provider Family Medicine; PCP Family Medicine; Referring Provider Surgery; Visit Provider Surgery
PROC: 0DJD8ZZ Inspection of Lower Intestinal Tract, Via Natural or Artificial Opening Endoscopic (ICD-10-PCS; CPT 45378; principal; 2025-01-15 13:00)
DX: Z12.11 Encounter for screening for malignant neoplasm of colon (principal); Z86.0100 Personal history of colon polyps, unspecified; K57.30 Diverticulosis of large intestine without perforation or abscess without bleeding; D12.2 Benign neoplasm of ascending colon
CPT/HCPCS: 45385; J2704

== ENCOUNTER → 2025-01-24 12:53 | Outpatient (CLI) | payer MEDICARE, SELFPAY ==
--- NOTE | 2025-01-24 12:55 | DI.CT.S_ITS ---
PROCEDURE: CT LUNG LOW DOSE SCREENING INDICATIONS: lung cancer screening, history of smoking TECHNIQUE: Noncontrast 2.0-2.5 mm thick sections acquired from the pulmonary apices to the posterior costophrenic angles. 7 mm thick axial MIP, and 5 mm coronal and sagittal reformats were then acquired. For radiation dose reduction, the following was used: automated exposure control, adjustment of mA and/or kV according to patient size. COMPARISON: [facility], CT, CT LUNG LOW DOSE SCREENING, 10/22/2023, 10:37. FINDINGS: Image quality: Diagnostic Lungs and pleura: Stable small pulmonary nodules, measuring up to 4 mm. Index nodule in the subpleural region of the right lower lung is seen on image 3/254. Mild scattered atelectasis and scarring. No new or enlarging nodule. No dense airspace disease or pleural effusion. Mediastinum, heart, and esophagus: Coronary calcifications. Normal heart size. No pathologic lymphadenopathy by size criteria. Chest wall and thyroid: Unremarkable Upper abdomen: Colonic diverticula. Bones: Degenerative changes. IMPRESSION: No suspicious pulmonary nodules. LUNG-RADS 2; continued annual screening, if eligible. Coronary calcifications. Dictated by: Viraj Phillips M.D. on 01/24/2025 at 19:48 Approved by: Viraj Phillips M.D. on 01/24/2025 at 19:52
== END ==
PROVIDERS: Family Provider Family Medicine; PCP Family Medicine; Referring Provider Family Medicine; Visit Provider Family Medicine
DX: Z12.2 Encounter for screening for malignant neoplasm of respiratory organs (principal); F17.210 Nicotine dependence, cigarettes, uncomplicated; I25.10 Atherosclerotic heart disease of native coronary artery without angina pectoris
CPT/HCPCS: 71271

== ENCOUNTER → 2025-06-12 09:38 | Outpatient (CLI) | payer MEDICARE, SELFPAY ==
--- NOTE | 2025-06-12 09:39 | DI.RAD.S_ITS ---
PROCEDURE: XR HIP W PEL IF DONE BILAT 2V INDICATIONS: hip pain TECHNIQUE: 3 views of the hip were acquired. COMPARISON: [facility], CR, XR HIP W PEL IF DONE RT 2V, 10/16/2022, 18:21. FINDINGS: Bones: No fractures or dislocations. No suspicious bony lesions. The visualized pelvic ring appears intact. Bilateral hip arthroplasty in good position unchanged Soft tissues: No suspicious soft tissue calcifications or masses. IMPRESSION: Bilateral hip arthroplasty good position. No evidence of hardware failure or loosening Approved by: Aaron Bledsoe M.D. on 06/12/2025 at 18:12
== END ==
PROVIDERS: Family Provider Family Medicine; PCP Family Medicine; Referring Provider Family Medicine; Visit Provider Family Medicine
DX: M25.551 Pain in right hip (principal); G89.29 Other chronic pain; Z96.643 Presence of artificial hip joint, bilateral
CPT/HCPCS: 73521